=== PATIENT | female | born 1950 | race Caucasian/White ===

== ENCOUNTER 2018-05-20 14:22 | Inpatient (IN) | payer MEDICARE, MEDICAID ==
[2018-05-20] MEDS: Sodium Chloride 0.9% 1,000 ML IV SCH ×2 (15:15→20:46)
[2018-05-20] MEDS ORDERED: cefTRIAXone 2 GM Vial IVPUSH ONE (15:30)
[2018-05-20 15:41] LABS: ANION GAP 14.2 mmol/L (10-20); CHLORIDE,CL 116 mmol/L (98-107); SODIUM,NA 159 mmol/L (136-145)
--- NOTE | 2018-05-20 15:44 | CR ---
[id number] RAD/RAD Chest PA or AP 1V EXAM: RAD Chest PA or AP 1V INDICATION: FEVER, DECREASED LEVEL OF CONSCIOUSNESS, SEPSIS ALERT. COMPARISON: March 2018 DISCUSSION: Persistent streaky parenchymal opacity in the left lung base retrocardiac region with blunting of the left costophrenic sulcus, similar to March 2018. Right lung base demonstrates improved aeration compared to that examination. Stable margin of the cardiomediastinal silhouette. IMPRESSION: Left lung base streaky parenchymal opacity and blunting of the costophrenic sulcus similar to March 2018. Findings are nonspecific, however in the clinical setting of infection pneumonia is possible. Armando Ribeiro MD 05/20/18 1542 Thank you for allowing us to participate in the care of your patient.
--- NOTE | 2018-05-20 16:03 | EDM.PDOC ---
ED HPI GENERAL MEDICAL PROBLEM - General Chief Complaint: General Time Seen by Provider: 05/20/18 14:23 Source of Information: Reports: Patient History Limitations: Reports: No Limitations - History of Present Illness INITIAL COMMENTS - FREE TEXT/NARRATIVE: Pt. presents to ER with decreased LOC, increased somnolence, low grade fever, decreased appetite, and tachycardia. Staff states that she has been progressively developing these symptoms over the past 2-3 days. Pt. was hospitalized with UTI and AGUSTÍN on . She was started on IV cipro and discharged back to the [facility] on 04/11/18 on Keflex. No nausea or vomiting. Pt. apparently did well post discharge. She does have a history of frequent UTIs. Pt. has a history of vascular dementia and has not been able to give a ROS. Pt. does have a history of A-fib and was experiencing a-fib with RVR when she was admitted. She was started on dig at that time. Once she was adequately hydrated, it appears her HR did decrease. Onset Date: 05/18/18 Location: Reports: Generalized - Related Data Allergies Allergy/AdvReac Type Severity Reaction Status Date / Time No Known Allergies Allergy Verified 05/20/18 14:42 Home Meds: Home Meds Acetaminophen [Tylenol] 650 mg PO TID 04/08/18 [History] Albuterol [Proventil] 2.5 mg INH QIDRT 04/08/18 [History] Allopurinol [Zyloprim] 200 mg PO DAILY 04/08/18 [History] Bisacodyl [Dulcolax] 5 mg PO DAILY PRN 04/08/18 [History] Calcium Citrate/Vitamin D3 [Calcium Citrate - Vit D Caplet] 1 each PO DAILY [History] Cholecalciferol (Vitamin D3) [Vitamin D3] 1,000 units PO DAILY 04/08/18 [History ] Divalproex Sodium [Depakote] 250 mg PO DAILY 04/08/18 [History] Divalproex Sodium [Depakote] 500 mg PO BEDTIME 04/08/18 [History] Ferrous Gluconate 324 mg PO DAILY 04/08/18 [History] Furosemide [Lasix] 80 mg PO BID 04/08/18 [History] Gluc 2KCl/Chondr/Ralph Hy/Hy Ac [Glucosamine & Chondroitin Cap] 1 each PO BID [History] Insulin Aspart [NovoLOG] 9 unit SQ ACDINNER 04/08/18 [History] Insulin Aspart [NovoLOG] 18 unit SQ ASDIRECTED 04/08/18 [History] Insulin Glarg,Human.Rec.Analog [Lantus] 14 unit SUBCUT BEDTIME 04/08/18 [History ] Menthol [Biofreeze] 118 ml TP BID 04/08/18 [History] Metoprolol Tartrate [Lopressor] 100 mg PO BID 04/08/18 [History] Multivitamin [Multivitamins] 1 each PO DAILY 04/08/18 [History] Potassium Chloride [Klor-Con M20] 20 meq PO BID 04/08/18 [History] Rivaroxaban [Xarelto] 20 mg PO DAILY 04/08/18 [History] Sennosides/Docusate Sodium [Senna Plus Tablet] 1 tab PO DAILY 04/08/18 [History] Sertraline HCl [Zoloft] 50 mg PO DAILY 04/08/18 [History] Digoxin 125 mcg PO DAILY #30 tablet 04/12/18 [Rx] cephALEXin [Keflex] 250 mg PO BID #6 cap 04/12/18 [Rx] Past Medical History Cardiovascular History: Reports: Afib, CAD, Heart Failure, High Cholesterol, Hypertension Gastrointestinal History: Reports: GERD Genitourinary History: Reports: Urinary Incontinence Musculoskeletal History: Reports: Osteoarthritis Neurological History: Reports: TIA Psychiatric History: Reports: Anxiety, Bipolar, Dementia, Depression Endocrine/Metabolic History: Reports: Diabetes, Type II Hematologic History: Reports: Anemia, Iron Deficiency Social & Family History - Tobacco Use Smoking Status *Q: Unknown Ever Smoked ED ROS GENERAL - Review of Systems Review Of Systems: Unable To Obtain Constitutional: Reports: Fever, Chills, Fatigue, Decreased Appetite ED EXAM, GENERAL - Physical Exam Exam: See Below Exam Limited By: No Limitations General Appearance: No Apparent Distress, Lethargic, Other (alert to strong verbal stimuli) Eye Exam: Bilateral Eye: EOMI, Normal Fundi, Normal Inspection, PERRL Throat/Mouth: Normal Inspection, Normal Lips, Normal Teeth, Normal Oropharynx, No Airway Compromise Head: Atraumatic, Normocephalic Neck: Normal Inspection, Supple, Non-Tender, Full Range of Motion Respiratory/Chest: No Respiratory Distress, No Accessory Muscle Use, Chest Non- Tender, Crackles (crackles in the lung bases) Cardiovascular: Normal Peripheral Pulses, No Edema, No Gallop, No JVD, No Murmur , No Rub, Irregularly Irregular Peripheral Pulses: 3+: Radial (L), Radial (R) GI/Abdominal: Soft, Non-Tender, No Organomegaly, No Distention, No Abnormal Bruit, No Mass (Female) Exam: Deferred Rectal (Female) Exam: Deferred Back Exam: Normal Inspection Extremities: Normal Inspection, Normal Range of Motion, No Pedal Edema, Normal Capillary Refill Neurological: CN II-XII Intact, Other (was able to squeeze hands. Bath Solution Maker strength is equal bilaterally. ) Skin Exam: Warm, Dry, No Rash, Pallor Lymphatic: No Adenopathy EKG INTERPRETATION Rhythm: A-Fib [place]: Normal P-Wave: Present QRS: Normal ST-T: Normal QT: Normal Course - Vital Signs Last Recorded V/S: Last Vital Signs Temp 37.1 C 05/20/18 15:28 Pulse 122 H 05/20/18 15:28 Resp 21 H 05/20/18 15:28 BP 128/72 05/20/18 15:28 Pulse Ox 91 L 05/20/18 15:28 - Orders/Labs/Meds Orders: Active Orders 24 hr Category Date Time Status Cardiac Monitoring [RC] CONTINUOUS Care 05/20/18 14:30 Active Dietary Supplements [RC] BIDMEALS Care 05/20/18 15:30 Active Oxygen Therapy [RC] PRN Care 05/20/18 14:30 Active CULTURE BLOOD [BC] Stat Lab 05/20/18 15:00 Results CULTURE BLOOD [BC] Stat Lab 05/20/18 15:06 Results CULTURE URINE [RM] Stat Lab 05/20/18 15:48 Ordered Sodium Chloride 0.9% [Normal Saline] 1,000 ml Med 05/20/18 14:45 Active IV ASDIRECTED Sodium Chloride 0.9% [Saline Flush] Med 05/20/18 14:30 Active 10 ml FLUSH ASDIRECTED PRN Blood Culture x2 Reflex Set [OM.PC] Stat Oth 05/20/18 14:32 Ordered Peripheral IV Insertion Adult [OM.PC] Routine Oth 05/20/18 14:32 Ordered Medication Orders Sodium Chloride (Normal Saline) 1,000 mls @ 125 mls/hr IV ASDIRECTED SAMUEL Last Admin: 05/20/18 15:15 Dose: 125 mls/hr Sodium Chloride (Saline Flush) 10 ml FLUSH ASDIRECTED PRN PRN Reason: Keep Vein Open Labs: Laboratory Tests 05/20/18 05/20/18 05/20/18 Range/Units 15:00 15:00 15:00 WBC 10.1 H (4.0-10.0) x10^3/uL RBC 4.75 (4.00-5.50) x10^6/uL Hgb 15.0 D (12.0-16.0) g/dL Hct 49.0 H (33.0-47.0) % MCV 103.2 H (78.0-93.0) fL MCH 31.6 (26.0-32.0) pg MCHC 30.6 L (32.0-36.0) g/dL RDW Coeff of Neema 14.4 (10.0-15.0) % Plt Count 164 (130-400) x10^3/uL Neut % (Auto) 81.2 H (50.0-80.0) % Lymph % (Auto) 11.8 L (25.0-50.0) % Lane % (Auto) 6.5 (2.0-11.0) % Eos % (Auto) 0.0 (0.0-4.0) % Baso % (Auto) 0.5 (0.2-1.2) % PT 14.6 H (9.6-11.4) SEC INR 1.4 L (2.0-3.5) Sodium 159 H (136-145) mmol/L Potassium 4.2 (3.5-5.1) mmol/L Chloride 116 H (98-107) mmol/L Carbon Dioxide 33 H (21-32) mmol/L Anion Gap 14.2 (10-20) mmol/L BUN 48 H D (7-18) mg/dL Creatinine 1.7 H (0.55-1.02) mg/dL Est Cr Clr Drug Dosing TNP Estimated GFR (MDRD) 30 Glucose 374 H (74-106) mg/dL Lactic Acid (0.4-2.0) mmol/L Calcium 9.5 D (8.5-10.1) mg/dL Corrected Calcium 10.14 H (8.5-10.1) mg/dL Phosphorus 3.9 (2.6-4.7) mg/dL Magnesium 2.9 H (1.8-2.4) mg/dL Total Bilirubin 1.4 H (0.2-1.0) mg/dL AST 23 (15-37) U/L ALT 43 (14-59) U/L Alkaline Phosphatase 100 (46-116) U/L Troponin I 0.053 (<=0.056) ng/mL C-Reactive Protein 8.4 H (<=0.9) mg/dL NT-Pro-B Natriuret Pep 4696 H (<=125) pg/mL Total Protein 7.5 (6.4-8.2) g/dL Albumin 3.2 L (3.4-5.0) g/dL Globulin 4.3 Albumin/Globulin Ratio 0.74 TSH, Ultra Sensitive 2.720 (0.358-3.74) uIU/mL Urine Color (YELLOW) Urine Appearance (CLEAR) Urine pH (5.0-8.0) Ur Specific [place] Urine Protein (NEGATIVE) mg/dL Urine Glucose (UA) (NEGATIVE) mg/dL Urine Ketones (NEGATIVE) mg/dL Urine Occult Blood (NEGATIVE) Urine Nitrite (NEGATIVE) Urine Bilirubin (NEGATIVE) Urine Urobilinogen (0.2) EU/dL Ur Leukocyte Esterase (NEGATIVE) Urine RBC (NOT SEEN) /HPF Urine WBC (NOT SEEN) /HPF Ur Squamous Epith Cells (NEGATIVE) /HPF Urine Bacteria (NEGATIVE) /HPF Urine Mucus (NEGATIVE) /LPF Digoxin 0.95 (0.90-2.00) ng/mL 05/20/18 05/20/18 Range/Units 15:00 15:24 WBC (4.0-10.0) x10^3/uL RBC (4.00-5.50) x10^6/uL Hgb (12.0-16.0) g/dL Hct (33.0-47.0) % MCV (78.0-93.0) fL MCH (26.0-32.0) pg MCHC (32.0-36.0) g/dL RDW Coeff of Neema (10.0-15.0) % Plt Count (130-400) x10^3/uL Neut % (Auto) (50.0-80.0) % Lymph % (Auto) (25.0-50.0) % Lane % (Auto) (2.0-11.0) % Eos % (Auto) (0.0-4.0) % Baso % (Auto) (0.2-1.2) % PT (9.6-11.4) SEC INR (2.0-3.5) Sodium (136-145) mmol/L Potassium (3.5-5.1) mmol/L Chloride (98-107) mmol/L Carbon Dioxide (21-32) mmol/L Anion Gap (10-20) mmol/L BUN (7-18) mg/dL Creatinine (0.55-1.02) mg/dL Est Cr Clr Drug Dosing Estimated GFR (MDRD) Glucose (74-106) mg/dL Lactic Acid 2.5 H* (0.4-2.0) mmol/L Calcium (8.5-10.1) mg/dL Corrected Calcium (8.5-10.1) mg/dL Phosphorus (2.6-4.7) mg/dL Magnesium (1.8-2.4) mg/dL Total Bilirubin (0.2-1.0) mg/dL AST (15-37) U/L ALT (14-59) U/L Alkaline Phosphatase (46-116) U/L Troponin I (<=0.056) ng/mL C-Reactive Protein (<=0.9) mg/dL NT-Pro-B Natriuret Pep (<=125) pg/mL Total Protein (6.4-8.2) g/dL Albumin (3.4-5.0) g/dL Globulin Albumin/Globulin Ratio TSH, Ultra Sensitive (0.358-3.74) uIU/mL Urine Color Yellow (YELLOW) Urine Appearance Cloudy H (CLEAR) Urine pH 7.5 (5.0-8.0) Ur Specific [place] 1.020 Urine Protein 100 H (NEGATIVE) mg/dL Urine Glucose (UA) Negative (NEGATIVE) mg/dL Urine Ketones Negative (NEGATIVE) mg/dL Urine Occult Blood Moderate H (NEGATIVE) Urine Nitrite Negative (NEGATIVE) Urine Bilirubin Negative (NEGATIVE) Urine Urobilinogen 1.0 (0.2) EU/dL Ur Leukocyte Esterase Large H (NEGATIVE) Urine RBC Not seen (NOT SEEN) /HPF Urine WBC Packed (NOT SEEN) /HPF Ur Squamous Epith Cells Rare (NEGATIVE) /HPF Urine Bacteria Not seen (NEGATIVE) /HPF Urine Mucus Not seen (NEGATIVE) /LPF Digoxin (0.90-2.00) ng/mL Meds: Medications Generic Name Dose Route Start Last Admin Trade Name Freq PRN Reason Stop Dose Admin Sodium Chloride 1,000 mls @ 125 mls/hr 05/20/18 14:45 05/20/18 15:15 Normal Saline IV 125 mls/hr ASDIRECTED SAMUEL Administration Sodium Chloride 10 ml 05/20/18 14:30 Saline Flush FLUSH ASDIRECTED PRN Keep Vein Open Discontinued Medications Generic Name Dose Route Start Last Admin Trade Name Freq PRN Reason Stop Dose Admin Ceftriaxone Sodium 2 gm 05/20/18 15:30 05/20/18 15:40 Rocephin IVPUSH 05/20/18 15:31 2 gm STAT ONE Administration - Radiology Interpretation Free Text/Narrative:: Chest x-ray reveals some bilateral mild opacification to lung bases. No large infiltrates noted. Departure - Departure Time of Disposition: 16:12 Disposition: Admitted As Inpatient 64 Preliminary Cause of *Q: Sepsis & Multi System Organ Failure Clinical Impression: UTI (urinary tract infection) - Discharge Information - Problem List Review Problem List Initiated/Reviewed/Updated: Yes - My Orders Last 24 Hours: My Active Orders 05/20/18 14:30 Cardiac Monitoring [RC] CONTINUOUS Oxygen Therapy [RC] PRN Sodium Chloride 0.9% [Saline Flush] 10 ml FLUSH ASDIRECTED PRN 05/20/18 14:32 Blood Culture x2 Reflex Set [OM.PC] Stat Peripheral IV Insertion Adult [OM.PC] Routine 05/20/18 14:45 Sodium Chloride 0.9% [Normal Saline] 1,000 ml IV ASDIRECTED 05/20/18 15:00 CULTURE BLOOD [BC] Stat 05/20/18 15:06 CULTURE BLOOD [BC] Stat 05/20/18 15:30 Dietary Supplements [RC] BIDMEALS 05/20/18 15:48 CULTURE URINE [RM] Stat - Assessment/Plan Last 24 Hours: My Active Orders 05/20/18 14:30 Cardiac Monitoring [RC] CONTINUOUS Oxygen Therapy [RC] PRN Sodium Chloride 0.9% [Saline Flush] 10 ml FLUSH ASDIRECTED PRN 05/20/18 14:32 Blood Culture x2 Reflex Set [OM.PC] Stat Peripheral IV Insertion Adult [OM.PC] Routine 05/20/18 14:45 Sodium Chloride 0.9% [Normal Saline] 1,000 ml IV ASDIRECTED 05/20/18 15:00 CULTURE BLOOD [BC] Stat 05/20/18 15:06 CULTURE BLOOD [BC] Stat 05/20/18 15:30 Dietary Supplements [RC] BIDMEALS 05/20/18 15:48 CULTURE URINE [RM] Stat Plan: Pt. will be admitted acute. She is a code 2, no CPR, no intubation. She was started on Rocephin 2gm IV in ER. Started on NS at 125ml/hr. Urine cultures were obtained. Will reassess lung sounds and possibly repeat CXR tomorrow. Repeat lactic acid in 6 hours. Discussed findings with daughter.
[2018-05-20] MEDS ORDERED: Sodium Chloride 0.9% 1,000 ML IV ONE (16:36)
[2018-05-20] MEDS ORDERED: Bisacodyl 5 MG Tab PO PRN (18:08)
[2018-05-20] MEDS: Furosemide 80 MG Tab PO SCH (18:31)
[2018-05-20] MEDS: Insulin Glargine,Human Rec. Analog 100 Units/ML 3 ML Pen SUBCUT SCH (20:16)
[2018-05-20] MEDS: Acetaminophen 325 MG Tab PO SCH (20:44)
[2018-05-20] MEDS: Potassium Chloride 20 MEQ Tab.ER PO SCH (20:44)
[2018-05-20] MEDS: Metoprolol Tartrate 50 MG Tab PO SCH (20:45)
[2018-05-20] MEDS: Divalproex Sodium Delayed-Release 250 MG Tab.CR PO SCH (20:46)
[2018-05-21] MEDS: Sodium Chloride 0.9% 1,000 ML IV SCH (04:39)
[2018-05-21] MEDS: Divalproex Sodium Delayed-Release 250 MG Tab.CR PO SCH ×3 (07:36→21:08)
[2018-05-21] MEDS: Metoprolol Tartrate 50 MG Tab PO SCH ×3 (07:36→21:09)
[2018-05-21] MEDS ORDERED: Insulin Regular, Human 100 Units/ML 3 ML Vial SUBCUT SCH (08:00)
[2018-05-21 08:57] LABS: ANION GAP 11.6 mmol/L (10-20)
--- NOTE | 2018-05-21 09:11 | PCM.PN ---
- General Info Date of Service: 05/21/18 Admission Dx/Problem (Free Text): Urosepsis AGUSTÍN Hypernatremia Dehydration Subjective Update: Patient minimally responsive per baseline. She is able to answer with one word responses. Difficulty to obtain ROS Functional Status: Reports: Pain Controlled, Urinating - Review of Systems General: Reports: Fever Systems Review Comment:: Unable to fully obtain due to vascular dementia - Patient Data Vitals - Most Recent: Last Vital Signs Temp 37.1 C 05/21/18 06:00 Pulse 103 H 05/21/18 06:00 Resp 20 05/21/18 06:00 BP 133/78 05/21/18 06:00 Pulse Ox 94 L 05/21/18 06:00 Weight - Most Recent: 117.254 kg I&O - Last 24 Hours: Intake & Output 05/20/18 05/21/18 05/21/18 22:59 06:59 14:59 Intake Total 1343 Balance 1343 Lab Results Last 24 Hours: Laboratory Results - last 24 hr 05/20/18 05/20/18 05/20/18 Range/Units 15:00 15:00 15:00 WBC 10.1 H (4.0-10.0) x10^3/uL RBC 4.75 (4.00-5.50) x10^6/uL Hgb 15.0 D (12.0-16.0) g/dL Hct 49.0 H (33.0-47.0) % MCV 103.2 H (78.0-93.0) fL MCH 31.6 (26.0-32.0) pg MCHC 30.6 L (32.0-36.0) g/dL RDW Coeff of Neema 14.4 (10.0-15.0) % Plt Count 164 (130-400) x10^3/uL Neut % (Auto) 81.2 H (50.0-80.0) % Lymph % (Auto) 11.8 L (25.0-50.0) % [place] % (Auto) 6.5 (2.0-11.0) % Eos % (Auto) 0.0 (0.0-4.0) % Baso % (Auto) 0.5 (0.2-1.2) % PT 14.6 H (9.6-11.4) SEC INR 1.4 L (2.0-3.5) Sodium 159 H (136-145) mmol/L Potassium 4.2 (3.5-5.1) mmol/L Chloride 116 H (98-107) mmol/L Carbon Dioxide 33 H (21-32) mmol/L Anion Gap 14.2 (10-20) mmol/L BUN 48 H D (7-18) mg/dL Creatinine 1.7 H (0.55-1.02) mg/dL Est Cr Clr Drug Dosing TNP Estimated GFR (MDRD) 30 Glucose 374 H (74-106) mg/dL POC Glucose (74-106) mg/dL Lactic Acid (0.4-2.0) mmol/L Calcium 9.5 D (8.5-10.1) mg/dL Corrected Calcium 10.14 H (8.5-10.1) mg/dL Phosphorus 3.9 (2.6-4.7) mg/dL Magnesium 2.9 H (1.8-2.4) mg/dL Total Bilirubin 1.4 H (0.2-1.0) mg/dL AST 23 (15-37) U/L ALT 43 (14-59) U/L Alkaline Phosphatase 100 (46-116) U/L Troponin I 0.053 (<=0.056) ng/mL C-Reactive Protein 8.4 H (<=0.9) mg/dL NT-Pro-B Natriuret Pep 4696 H (<=125) pg/mL Total Protein 7.5 (6.4-8.2) g/dL Albumin 3.2 L (3.4-5.0) g/dL Globulin 4.3 Albumin/Globulin Ratio 0.74 TSH, Ultra Sensitive 2.720 (0.358-3.74) uIU/mL Urine Color (YELLOW) Urine Appearance (CLEAR) Urine pH (5.0-8.0) Ur Specific [place] Urine Protein (NEGATIVE) mg/dL Urine Glucose (UA) (NEGATIVE) mg/dL Urine Ketones (NEGATIVE) mg/dL Urine Occult Blood (NEGATIVE) Urine Nitrite (NEGATIVE) Urine Bilirubin (NEGATIVE) Urine Urobilinogen (0.2) EU/dL Ur Leukocyte Esterase (NEGATIVE) Urine RBC (NOT SEEN) /HPF Urine WBC (NOT SEEN) /HPF Ur Squamous Epith Cells (NEGATIVE) /HPF Urine Bacteria (NEGATIVE) /HPF Urine Mucus (NEGATIVE) /LPF Digoxin 0.95 (0.90-2.00) ng/mL 05/20/18 05/20/18 05/20/18 Range/Units 15:00 15:24 20:15 WBC (4.0-10.0) x10^3/uL RBC (4.00-5.50) x10^6/uL Hgb (12.0-16.0) g/dL Hct (33.0-47.0) % MCV (78.0-93.0) fL MCH (26.0-32.0) pg MCHC (32.0-36.0) g/dL RDW Coeff of Neema (10.0-15.0) % Plt Count (130-400) x10^3/uL Neut % (Auto) (50.0-80.0) % Lymph % (Auto) (25.0-50.0) % [place] % (Auto) (2.0-11.0) % Eos % (Auto) (0.0-4.0) % Baso % (Auto) (0.2-1.2) % PT (9.6-11.4) SEC INR (2.0-3.5) Sodium (136-145) mmol/L Potassium (3.5-5.1) mmol/L Chloride (98-107) mmol/L Carbon Dioxide (21-32) mmol/L Anion Gap (10-20) mmol/L BUN (7-18) mg/dL Creatinine (0.55-1.02) mg/dL Est Cr Clr Drug Dosing Estimated GFR (MDRD) Glucose (74-106) mg/dL POC Glucose 342 H (74-106) mg/dL Lactic Acid 2.5 H* (0.4-2.0) mmol/L Calcium (8.5-10.1) mg/dL Corrected Calcium (8.5-10.1) mg/dL Phosphorus (2.6-4.7) mg/dL Magnesium (1.8-2.4) mg/dL Total Bilirubin (0.2-1.0) mg/dL AST (15-37) U/L ALT (14-59) U/L Alkaline Phosphatase (46-116) U/L Troponin I (<=0.056) ng/mL C-Reactive Protein (<=0.9) mg/dL NT-Pro-B Natriuret Pep (<=125) pg/mL Total Protein (6.4-8.2) g/dL Albumin (3.4-5.0) g/dL Globulin Albumin/Globulin Ratio TSH, Ultra Sensitive (0.358-3.74) uIU/mL Urine Color Yellow (YELLOW) Urine Appearance Cloudy H (CLEAR) Urine pH 7.5 (5.0-8.0) Ur Specific [place] 1.020 Urine Protein 100 H (NEGATIVE) mg/dL Urine Glucose (UA) Negative (NEGATIVE) mg/dL Urine Ketones Negative (NEGATIVE) mg/dL Urine Occult Blood Moderate H (NEGATIVE) Urine Nitrite Negative (NEGATIVE) Urine Bilirubin Negative (NEGATIVE) Urine Urobilinogen 1.0 (0.2) EU/dL Ur Leukocyte Esterase Large H (NEGATIVE) Urine RBC Not seen (NOT SEEN) /HPF Urine WBC Packed (NOT SEEN) /HPF Ur Squamous Epith Cells Rare (NEGATIVE) /HPF Urine Bacteria Not seen (NEGATIVE) /HPF Urine Mucus Not seen (NEGATIVE) /LPF Digoxin (0.90-2.00) ng/mL 05/20/18 05/20/18 05/21/18 Range/Units 21:56 22:18 06:44 WBC (4.0-10.0) x10^3/uL RBC (4.00-5.50) x10^6/uL Hgb (12.0-16.0) g/dL Hct (33.0-47.0) % MCV (78.0-93.0) fL MCH (26.0-32.0) pg MCHC (32.0-36.0) g/dL RDW Coeff of Neema (10.0-15.0) % Plt Count (130-400) x10^3/uL Neut % (Auto) (50.0-80.0) % Lymph % (Auto) (25.0-50.0) % [place] % (Auto) (2.0-11.0) % Eos % (Auto) (0.0-4.0) % Baso % (Auto) (0.2-1.2) % PT (9.6-11.4) SEC INR (2.0-3.5) Sodium (136-145) mmol/L Potassium (3.5-5.1) mmol/L Chloride (98-107) mmol/L Carbon Dioxide (21-32) mmol/L Anion Gap (10-20) mmol/L BUN (7-18) mg/dL Creatinine (0.55-1.02) mg/dL Est Cr Clr Drug Dosing Estimated GFR (MDRD) Glucose (74-106) mg/dL POC Glucose 329 H 236 H (74-106) mg/dL Lactic Acid 2.1 H* (0.4-2.0) mmol/L Calcium (8.5-10.1) mg/dL Corrected Calcium (8.5-10.1) mg/dL Phosphorus (2.6-4.7) mg/dL Magnesium (1.8-2.4) mg/dL Total Bilirubin (0.2-1.0) mg/dL AST (15-37) U/L ALT (14-59) U/L Alkaline Phosphatase (46-116) U/L Troponin I (<=0.056) ng/mL C-Reactive Protein (<=0.9) mg/dL NT-Pro-B Natriuret Pep (<=125) pg/mL Total Protein (6.4-8.2) g/dL Albumin (3.4-5.0) g/dL Globulin Albumin/Globulin Ratio TSH, Ultra Sensitive (0.358-3.74) uIU/mL Urine Color (YELLOW) Urine Appearance (CLEAR) Urine pH (5.0-8.0) Ur Specific [place] Urine Protein (NEGATIVE) mg/dL Urine Glucose (UA) (NEGATIVE) mg/dL Urine Ketones (NEGATIVE) mg/dL Urine Occult Blood (NEGATIVE) Urine Nitrite (NEGATIVE) Urine Bilirubin (NEGATIVE) Urine Urobilinogen (0.2) EU/dL Ur Leukocyte Esterase (NEGATIVE) Urine RBC (NOT SEEN) /HPF Urine WBC (NOT SEEN) /HPF Ur Squamous Epith Cells (NEGATIVE) /HPF Urine Bacteria (NEGATIVE) /HPF Urine Mucus (NEGATIVE) /LPF Digoxin (0.90-2.00) ng/mL 05/21/18 05/21/18 05/21/18 Range/Units 07:59 07:59 07:59 WBC 7.4 (4.0-10.0) x10^3/uL RBC 4.42 (4.00-5.50) x10^6/uL Hgb 13.7 (12.0-16.0) g/dL Hct 46.1 (33.0-47.0) % MCV 104.3 H (78.0-93.0) fL MCH 31.0 (26.0-32.0) pg MCHC 29.7 L (32.0-36.0) g/dL RDW Coeff of Neema 14.1 (10.0-15.0) % Plt Count 161 (130-400) x10^3/uL Neut % (Auto) 78.3 (50.0-80.0) % Lymph % (Auto) 15.4 L (25.0-50.0) % [place] % (Auto) 5.7 (2.0-11.0) % Eos % (Auto) 0.3 (0.0-4.0) % Baso % (Auto) 0.3 (0.2-1.2) % PT (9.6-11.4) SEC INR (2.0-3.5) Sodium 162 H* (136-145) mmol/L Potassium 3.6 (3.5-5.1) mmol/L Chloride 123 H (98-107) mmol/L Carbon Dioxide 31 (21-32) mmol/L Anion Gap 11.6 (10-20) mmol/L BUN 43 H (7-18) mg/dL Creatinine 1.4 H (0.55-1.02) mg/dL Est Cr Clr Drug Dosing 33.65 Estimated GFR (MDRD) 37 Glucose 276 H (74-106) mg/dL POC Glucose (74-106) mg/dL Lactic Acid 1.9 (0.4-2.0) mmol/L Calcium 9.0 (8.5-10.1) mg/dL Corrected Calcium 9.96 (8.5-10.1) mg/dL Phosphorus (2.6-4.7) mg/dL Magnesium (1.8-2.4) mg/dL Total Bilirubin 1.0 (0.2-1.0) mg/dL AST 16 (15-37) U/L ALT 31 (14-59) U/L Alkaline Phosphatase 83 (46-116) U/L Troponin I (<=0.056) ng/mL C-Reactive Protein (<=0.9) mg/dL NT-Pro-B Natriuret Pep (<=125) pg/mL Total Protein 7.0 (6.4-8.2) g/dL Albumin 2.8 L (3.4-5.0) g/dL Globulin 4.2 Albumin/Globulin Ratio 0.67 TSH, Ultra Sensitive (0.358-3.74) uIU/mL Urine Color (YELLOW) Urine Appearance (CLEAR) Urine pH (5.0-8.0) Ur Specific [place] Urine Protein (NEGATIVE) mg/dL Urine Glucose (UA) (NEGATIVE) mg/dL Urine Ketones (NEGATIVE) mg/dL Urine Occult Blood (NEGATIVE) Urine Nitrite (NEGATIVE) Urine Bilirubin (NEGATIVE) Urine Urobilinogen (0.2) EU/dL Ur Leukocyte Esterase (NEGATIVE) Urine RBC (NOT SEEN) /HPF Urine WBC (NOT SEEN) /HPF Ur Squamous Epith Cells (NEGATIVE) /HPF Urine Bacteria (NEGATIVE) /HPF Urine Mucus (NEGATIVE) /LPF Digoxin (0.90-2.00) ng/mL Jose Results Last 24 Hours: Microbiology 05/20/18 14:50 Influenza Type A Antigen Screen - Final Nasal, Unspecified NEGATIVE INFLUENZA A VIRUS AG Influenza Type B Antigen Screen - Final NEGATIVE INFLUENZA B VIRUS AG 05/20/18 15:06 Anaerobic Blood Culture - Final Blood - Venous - Lab Draw 05/20/18 15:00 Anaerobic Blood Culture - Final Blood - Venous Med Orders - Current: Current Medications Acetaminophen (Tylenol) 650 mg PO TID [facility] Last Admin: 05/20/18 20:44 Dose: Not Given Allopurinol (Zyloprim) 200 mg PO DAILY [facility] Bisacodyl (Dulcolax) 5 mg PO DAILY PRN PRN Reason: Constipation Calcium Citrate (Calcium Citrate + D) 1 tab PO DAILY [facility] Ceftriaxone Sodium (Rocephin) 2 gm IVPUSH DAILY@1500 [facility] Cholecalciferol (Vitamin D3) 1,000 units PO DAILY [facility] Digoxin (Lanoxin) 125 mcg PO DAILY [facility] Divalproex Sodium (Divalproex Sodium) 250 mg PO DAILY [facility] Divalproex Sodium (Divalproex Sodium) 500 mg PO BEDTIME [facility] Last Admin: 05/21/18 07:36 Dose: Not Given Furosemide (Lasix) 80 mg PO BIDDIURETIC [facility] Last Admin: 05/20/18 18:31 Dose: Not Given Dextrose/Water (Dextrose 5% In Water) 1,000 mls @ 100 mls/hr IV ASDIRECTED [facility] Insulin Glargine (Lantus Solostar) 14 units SUBCUT BEDTIME [facility] Last Admin: 05/20/18 20:16 Dose: 14 units Insulin Human Regular (Humulin R) 0 unit SUBCUT TIDMEALS [facility]; Protocol Metoprolol Tartrate (Lopressor) 100 mg PO BID [facility] Last Admin: 05/21/18 07:36 Dose: Not Given Multivitamins/Minerals (Thera M Plus) 1 tab PO DAILY [facility] Non-Formulary Medication (Ferrous Gluconate [Ferrous Gluconate]) 324 mg PO DAILY [facility] Potassium Chloride (Klor-Con M20) 20 meq PO BID [facility] Last Admin: 05/20/18 20:44 Dose: Not Given Rivaroxaban (Xarelto) 15 mg PO DAILY [facility] Senna/Docusate Sodium (Senna Plus) 1 tab PO DAILY [facility] Sertraline HCl (Zoloft) 50 mg PO DAILY [facility] Sodium Chloride (Saline Flush) 10 ml FLUSH ASDIRECTED PRN PRN Reason: Keep Vein Open Discontinued Medications Ceftriaxone Sodium (Rocephin) 2 gm IVPUSH STAT ONE Stop: 05/20/18 15:31 Last Admin: 05/20/18 15:40 Dose: 2 gm Sodium Chloride (Normal Saline) 1,000 mls @ 125 mls/hr IV ASDIRECTED [facility] Last Admin: 05/21/18 04:39 Dose: 125 mls/hr Sodium Chloride (Normal Saline) 1,000 mls @ 175 mls/hr IV .BOLUS ONE Stop: 05/20/18 22:18 Last Admin: 05/20/18 16:46 Dose: 175 mls/hr Insulin Human Lispro (Humalog) 9 unit SUBCUT ACDINNER [facility] Insulin Human Lispro (Humalog) 18 unit SUBCUT DAILY@1100 [facility] Insulin Human Regular (Humulin R) 0 unit SUBCUT TIDMEALS [facility]; Protocol - Exam Quality Assessment: DVT Prophylaxis. No: Skin Breakdown General: Alert, Cooperative, No Acute Distress, Other (Unable to fully assess due to chronic vascular dementia) Lungs: Clear to Auscultation, Normal Respiratory Effort (coarse throughout) Cardiovascular: Regular Rate, Irregular Rhythm GI/Abdominal Exam: Soft, Non-Tender, Abnormal Bowel Sounds (Hypoactive) Extremities: Normal Inspection Skin: Warm, Dry, Intact Neurological: No New Focal Deficit - Problem List & Annotations (1) Sepsis due to gram-negative urinary tract infection SNOMED Code(s): 009859389 Code(s): A41.50 - GRAM-NEGATIVE SEPSIS, UNSPECIFIED; N39.0 - URINARY TRACT INFECTION, SITE NOT SPECIFIED Status: Acute Priority: High Current Visit: Yes (2) Acute renal failure SNOMED Code(s): 48484950 Code(s): N17.9 - ACUTE KIDNEY FAILURE, UNSPECIFIED Status: Acute Priority : Medium Current Visit: Yes Qualifiers: Acute renal failure type: unspecified Qualified Code(s): N17.9 - Acute kidney failure, unspecified (3) Dehydration SNOMED Code(s): 45942095 Code(s): E86.0 - DEHYDRATION Status: Acute Priority: Medium Current Visit: Yes (4) Hypernatremia SNOMED Code(s): 14228587 Code(s): E87.0 - HYPEROSMOLALITY AND HYPERNATREMIA Status: Acute Priority : Medium Current Visit: Yes - Problem List Review Problem List Initiated/Reviewed/Updated: Yes - My Orders Last 24 Hours: My Active Orders 05/21/18 09:15 Dextrose 5% in Water 1,000 ml IV ASDIRECTED 05/21/18 12:00 Insulin Regular, Human [HumuLIN R] See Protocol SUBCUT TIDMEALS - Assessment Assessment:: Urosepsis AGUSTÍN Hypernatremia Dehydration - Plan Plan:: 68-year-old female [facility] resident with a past medical history of vascular dementia, hypertension, type 2 diabetes, congestive heart failure, disease is admitted to the acute care floor at [facility] for diagnosis of urosepsis, acute kidney injury, hypernatremia, and dehydration. The patient was started on IV Rocephin yesterday. The patient had normal saline infusing, which was discontinued today because of hypernatremia. Will switch IV fluids over to D5 and increase the patient's insulin requirements. Awaiting urine culture, however preliminary result shows gram-negative growth. Acute kidney injury is improving. Creatinine yesterday was 1.7, and is 1.4 today. We will continue to monitor fluid status. The patient is on several toe for chronic atrial fib. The patient is a code 3. I do anticipate this admission for another 2-3 days. Continue acute cares for now. Dr. Delores Hill will assume care of this patient tomorrow AM.
[2018-05-21] MEDS: Calcium Citrate/Vitamin D3 315 MG-250 Unit Tab PO SCH (10:01)
[2018-05-21] MEDS: Multivitamins with Iron/Calcium/Folic Acid/Minerals Tab PO SCH (10:01)
[2018-05-21] MEDS: Rivaroxaban 10 MG Tab PO SCH (10:06)
[2018-05-21] MEDS: Potassium Chloride 20 MEQ Tab.ER PO SCH ×2 (10:06→21:07)
[2018-05-21] MEDS: Acetaminophen 325 MG Tab PO SCH ×3 (10:06→21:07)
[2018-05-21] MEDS: Allopurinol 100 MG Tab PO SCH (10:06)
[2018-05-21] MEDS: Cholecalciferol (Vitamin D3) 1,000 Unit Tab PO SCH (10:07)
[2018-05-21] MEDS: Digoxin 125 MCG Tab PO SCH (10:07)
[2018-05-21] MEDS: Sertraline 50 MG Tab PO SCH (10:07)
[2018-05-21] MEDS: Furosemide 80 MG Tab PO SCH ×2 (10:07→16:30)
[2018-05-21] MEDS ORDERED: Insulin Lispro 100 Unit/ML 3 ML KwikPen SUBCUT SCH ×2 (11:00→17:00)
[2018-05-21] MEDS: Dextrose 5% in Water 1,000 ML IV SCH ×2 (11:04→21:01)
[2018-05-21] MEDS: Insulin Regular, Human 100 Units/ML 3 ML Vial SUBCUT SCH ×2 (11:51→17:11)
[2018-05-21] MEDS: cefTRIAXone 2 GM Vial IVPUSH SCH (14:42)
[2018-05-21] MEDS: Insulin Glargine,Human Rec. Analog 100 Units/ML 3 ML Pen SUBCUT SCH (21:04)
[2018-05-22 07:24] LABS: ANION GAP 12.3 mmol/L (10-20)
[2018-05-22] MEDS: Cholecalciferol (Vitamin D3) 1,000 Unit Tab PO SCH (07:59)
[2018-05-22] MEDS: Furosemide 80 MG Tab PO SCH ×2 (07:59→15:05)
[2018-05-22] MEDS: Multivitamins with Iron/Calcium/Folic Acid/Minerals Tab PO SCH (07:59)
[2018-05-22] MEDS: Calcium Citrate/Vitamin D3 315 MG-250 Unit Tab PO SCH (07:59)
[2018-05-22] MEDS: Sertraline 50 MG Tab PO SCH (07:59)
[2018-05-22] MEDS: Metoprolol Tartrate 50 MG Tab PO SCH ×2 (07:59→21:30)
[2018-05-22] MEDS: Acetaminophen 325 MG Tab PO SCH ×3 (07:59→21:34)
[2018-05-22] MEDS: Rivaroxaban 10 MG Tab PO SCH (07:59)
[2018-05-22] MEDS: Allopurinol 100 MG Tab PO SCH (07:59)
[2018-05-22] MEDS: Potassium Chloride 20 MEQ Tab.ER PO SCH ×2 (07:59→21:34)
[2018-05-22] MEDS: Insulin Regular, Human 100 Units/ML 3 ML Vial SUBCUT SCH ×3 (08:00→17:45)
[2018-05-22] MEDS: Digoxin 125 MCG Tab PO SCH (08:00)
[2018-05-22] MEDS: Divalproex Sodium Delayed-Release 250 MG Tab.CR PO SCH ×2 (08:00→21:33)
--- NOTE | 2018-05-22 08:08 | PCM.PN ---
- General Info Date of Service: 05/22/18 Subjective Update: 68 yo female hospital day #3 for UTI and hypernatremia. Patient is essentially nonverbal and does not answer questions. Had an uneventful night. - Review of Systems Systems Review Comment:: Unable to assess due to patient's nonverbal status. - Patient Data Vitals - Most Recent: Last Vital Signs Temp 37.2 C 05/22/18 05:27 Pulse 90 05/22/18 08:00 Resp 20 05/22/18 05:27 BP 130/89 05/22/18 07:59 Pulse Ox 95 05/22/18 05:27 Weight - Most Recent: 115.938 kg I&O - Last 24 Hours: Intake & Output 05/21/18 05/22/18 05/22/18 22:59 06:59 14:59 Intake Total 900 1376 Balance 900 1376 Lab Results Last 24 Hours: Laboratory Results - last 24 hr 05/21/18 05/21/18 05/21/18 Range/Units 07:59 07:59 07:59 WBC 7.4 (4.0-10.0) x10^3/uL RBC 4.42 (4.00-5.50) x10^6/uL Hgb 13.7 (12.0-16.0) g/dL Hct 46.1 (33.0-47.0) % MCV 104.3 H (78.0-93.0) fL MCH 31.0 (26.0-32.0) pg MCHC 29.7 L (32.0-36.0) g/dL RDW Coeff of Neema 14.1 (10.0-15.0) % Plt Count 161 (130-400) x10^3/uL Neut % (Auto) 78.3 (50.0-80.0) % Lymph % (Auto) 15.4 L (25.0-50.0) % Will % (Auto) 5.7 (2.0-11.0) % Eos % (Auto) 0.3 (0.0-4.0) % Baso % (Auto) 0.3 (0.2-1.2) % Sodium 162 H* (136-145) mmol/L Potassium 3.6 (3.5-5.1) mmol/L Chloride 123 H (98-107) mmol/L Carbon Dioxide 31 (21-32) mmol/L Anion Gap 11.6 (10-20) mmol/L BUN 43 H (7-18) mg/dL Creatinine 1.4 H (0.55-1.02) mg/dL Est Cr Clr Drug Dosing 33.65 mL/min Estimated GFR (MDRD) 37 Glucose 276 H (74-106) mg/dL POC Glucose (74-106) mg/dL Lactic Acid 1.9 (0.4-2.0) mmol/L Calcium 9.0 (8.5-10.1) mg/dL Corrected Calcium 9.96 (8.5-10.1) mg/dL Total Bilirubin 1.0 (0.2-1.0) mg/dL AST 16 (15-37) U/L ALT 31 (14-59) U/L Alkaline Phosphatase 83 (46-116) U/L Total Protein 7.0 (6.4-8.2) g/dL Albumin 2.8 L (3.4-5.0) g/dL Globulin 4.2 Albumin/Globulin Ratio 0.67 05/22/18 05/22/18 05/22/18 Range/Units 06:20 06:38 06:38 WBC 8.6 (4.0-10.0) x10^3/uL RBC 4.56 (4.00-5.50) x10^6/uL Hgb 14.3 (12.0-16.0) g/dL Hct 46.9 (33.0-47.0) % MCV 102.9 H (78.0-93.0) fL MCH 31.4 (26.0-32.0) pg MCHC 30.5 L (32.0-36.0) g/dL RDW Coeff of Neema 13.8 (10.0-15.0) % Plt Count 128 L (130-400) x10^3/uL Neut % (Auto) 80.6 H (50.0-80.0) % Lymph % (Auto) 13.1 L (25.0-50.0) % Will % (Auto) 5.7 (2.0-11.0) % Eos % (Auto) 0.2 (0.0-4.0) % Baso % (Auto) 0.4 (0.2-1.2) % Sodium 155 H (136-145) mmol/L Potassium 3.3 L (3.5-5.1) mmol/L Chloride 116 H (98-107) mmol/L Carbon Dioxide 30 (21-32) mmol/L Anion Gap 12.3 (10-20) mmol/L BUN 35 H (7-18) mg/dL Creatinine 1.3 H (0.55-1.02) mg/dL Est Cr Clr Drug Dosing 36.23 mL/min Estimated GFR (MDRD) 40 Glucose 411 H* (74-106) mg/dL POC Glucose 366 H (74-106) mg/dL Lactic Acid (0.4-2.0) mmol/L Calcium 8.7 (8.5-10.1) mg/dL Corrected Calcium (8.5-10.1) mg/dL Total Bilirubin (0.2-1.0) mg/dL AST (15-37) U/L ALT (14-59) U/L Alkaline Phosphatase (46-116) U/L Total Protein (6.4-8.2) g/dL Albumin (3.4-5.0) g/dL Globulin Albumin/Globulin Ratio Jose Results Last 24 Hours: Microbiology 05/20/18 15:24 Urine Culture - Final Urine, Catheterized Klebsiella Pneumoniae Proteus Mirabilis 05/20/18 15:06 Aerobic Blood Culture - Preliminary Blood - Venous - Lab Draw NO GROWTH AFTER 1 DAY Anaerobic Blood Culture - Final 05/20/18 15:00 Aerobic Blood Culture - Preliminary Blood - Venous NO GROWTH AFTER 1 DAY Anaerobic Blood Culture - Final 05/20/18 16:08 MRSA Surveillance Culture - Final Nares, Unspecified NO MRSA ISOLATED Med Orders - Current: Current Medications Acetaminophen (Tylenol) 650 mg PO TID [facility] Last Admin: 05/22/18 07:59 Dose: 650 mg Allopurinol (Zyloprim) 200 mg PO DAILY [facility] Last Admin: 05/22/18 07:59 Dose: 200 mg Bisacodyl (Dulcolax) 5 mg PO DAILY PRN PRN Reason: Constipation Calcium Citrate (Calcium Citrate + D) 1 tab PO DAILY [facility] Last Admin: 05/22/18 07:59 Dose: 1 tab Ceftriaxone Sodium (Rocephin) 2 gm IVPUSH DAILY@1500 [facility] Last Admin: 05/21/18 14:42 Dose: 2 gm Cholecalciferol (Vitamin D3) 1,000 units PO DAILY [facility] Last Admin: 05/22/18 07:59 Dose: 1,000 units Digoxin (Lanoxin) 125 mcg PO DAILY [facility] Last Admin: 05/22/18 08:00 Dose: 125 mcg Divalproex Sodium (Divalproex Sodium) 250 mg PO DAILY [facility] Last Admin: 05/22/18 08:00 Dose: 250 mg Divalproex Sodium (Divalproex Sodium) 500 mg PO BEDTIME [facility] Last Admin: 05/21/18 21:08 Dose: 500 mg Furosemide (Lasix) 80 mg PO BIDDIURETIC [facility] Last Admin: 05/22/18 07:59 Dose: 80 mg Dextrose/Water (Dextrose 5% In Water) 1,000 mls @ 100 mls/hr IV ASDIRECTED [facility] Last Admin: 05/21/18 21:01 Dose: 100 mls/hr Insulin Glargine (Lantus Solostar) 14 units SUBCUT BEDTIME [facility] Last Admin: 05/21/18 21:04 Dose: 14 units Insulin Human Regular (Humulin R) 0 unit SUBCUT TIDMEALS [facility]; Protocol Last Admin: 05/22/18 08:00 Dose: 18 units Metoprolol Tartrate (Lopressor) 100 mg PO BID [facility] Last Admin: 05/22/18 07:59 Dose: 100 mg Multivitamins/Minerals (Thera M Plus) 1 tab PO DAILY [facility] Last Admin: 05/22/18 07:59 Dose: 1 tab Non-Formulary Medication (Ferrous Gluconate [Ferrous Gluconate]) 324 mg PO DAILY [facility] Potassium Chloride (Klor-Con M20) 20 meq PO BID [facility] Last Admin: 05/22/18 07:59 Dose: 20 meq Rivaroxaban (Xarelto) 15 mg PO DAILY [facility] Last Admin: 05/22/18 07:59 Dose: 15 mg Senna/Docusate Sodium (Senna Plus) 1 tab PO DAILY [facility] Last Admin: 05/22/18 08:00 Dose: 1 tab Sertraline HCl (Zoloft) 50 mg PO DAILY [facility] Last Admin: 05/22/18 07:59 Dose: 50 mg Sodium Chloride (Saline Flush) 10 ml FLUSH ASDIRECTED PRN PRN Reason: Keep Vein Open Discontinued Medications Ceftriaxone Sodium (Rocephin) 2 gm IVPUSH STAT ONE Stop: 05/20/18 15:31 Last Admin: 05/20/18 15:40 Dose: 2 gm Sodium Chloride (Normal Saline) 1,000 mls @ 125 mls/hr IV ASDIRECTED [facility] Last Admin: 05/21/18 04:39 Dose: 125 mls/hr Sodium Chloride (Normal Saline) 1,000 mls @ 175 mls/hr IV .BOLUS ONE Stop: 05/20/18 22:18 Last Admin: 05/20/18 16:46 Dose: 175 mls/hr Insulin Human Lispro (Humalog) 9 unit SUBCUT ACDINNER [facility] Insulin Human Lispro (Humalog) 18 unit SUBCUT DAILY@1100 [facility] Insulin Human Regular (Humulin R) 0 unit SUBCUT TIDMEALS [facility]; Protocol Last Admin: 05/21/18 08:00 Dose: Not Given - Exam General: No Acute Distress, Other (sleepy but does alert to questions) HEENT: Mucous Membr. Moist/[place] Neck: Supple, Trachea Midline, No Thyromegaly. No: Lymphadenopathy Lungs: Clear to Auscultation, Normal Respiratory Effort Cardiovascular: Regular Rate, No Murmurs, Irregular Rhythm GI/Abdominal Exam: Normal Bowel Sounds, Soft, Non-Tender, No Organomegaly, No Distention, No Mass Extremities: Non-Tender, No Pedal Edema, Normal Capillary Refill Peripheral Pulses: 2+: Radial (L), Radial (R) Skin: Warm, Dry, Intact - Problem List & Annotations (1) UTI (urinary tract infection) SNOMED Code(s): 68204539 Code(s): N39.0 - URINARY TRACT INFECTION, SITE NOT SPECIFIED Status: Acute Current Visit: Yes Qualifiers: Urinary tract infection type: acute cystitis Hematuria presence: without hematuria Qualified Code(s): N30.00 - Acute cystitis without hematuria (2) Acute renal failure SNOMED Code(s): 41412530 Code(s): N17.9 - ACUTE KIDNEY FAILURE, UNSPECIFIED Status: Acute Priority : Medium Current Visit: Yes Qualifiers: Acute renal failure type: unspecified Qualified Code(s): N17.9 - Acute kidney failure, unspecified (3) Chronic kidney disease SNOMED Code(s): 982243966 Code(s): N18.9 - CHRONIC KIDNEY DISEASE, UNSPECIFIED Status: Chronic Current Visit: Yes Qualifiers: Chronic kidney disease stage: stage 3 (moderate) Qualified Code(s): N18.3 - Chronic kidney disease, stage 3 (moderate) (4) Dehydration SNOMED Code(s): 17391260 Code(s): E86.0 - DEHYDRATION Status: Acute Priority: Medium Current Visit: Yes (5) Hypernatremia SNOMED Code(s): 22570145 Code(s): E87.0 - HYPEROSMOLALITY AND HYPERNATREMIA Status: Acute Priority : Medium Current Visit: Yes (6) CHF (congestive heart failure) SNOMED Code(s): 48261102 Code(s): I50.9 - HEART FAILURE, UNSPECIFIED Status: Chronic Current Visit : No Qualifiers: Heart failure type: diastolic Heart failure chronicity: chronic Qualified Code(s): I50.32 - Chronic diastolic (congestive) heart failure (7) Diabetes SNOMED Code(s): 37737399 Code(s): E11.9 - TYPE 2 DIABETES MELLITUS WITHOUT COMPLICATIONS Status: Chronic Current Visit: No Qualifiers: Diabetes mellitus type: type 2 Diabetes mellitus intermediate frame tender insulin use: with [facility] use Diabetes mellitus complication status: without complication Qualified Code(s): E11.9 - Type 2 diabetes mellitus without complications; Z79.4 - residential (current) use of insulin (8) Dementia SNOMED Code(s): 35284156 Code(s): F03.90 - UNSPECIFIED DEMENTIA WITHOUT BEHAVIORAL DISTURBANCE Status: Chronic Current Visit: No Qualifiers: Dementia type: unspecified type Dementia behavioral disturbance: without behavioral disturbance Qualified Code(s): F03.90 - Unspecified dementia without behavioral disturbance (9) Atrial fibrillation SNOMED Code(s): 94939011 Code(s): I48.91 - UNSPECIFIED ATRIAL FIBRILLATION Status: Chronic Current Visit: No Qualifiers: Atrial fibrillation type: persistent Qualified Code(s): I48.1 - Persistent atrial fibrillation (10) Bipolar 1 disorder SNOMED Code(s): 366974603 Code(s): F31.9 - BIPOLAR DISORDER, UNSPECIFIED Status: Chronic Current Visit: No (11) Hypertension SNOMED Code(s): 83694445 Code(s): I10 - ESSENTIAL (PRIMARY) HYPERTENSION Status: Chronic Current Visit: No Qualifiers: Hypertension type: essential hypertension Qualified Code(s): I10 - Essential (primary) hypertension (12) Morbid obesity SNOMED Code(s): 360506228 Code(s): E66.01 - MORBID (SEVERE) OBESITY DUE TO EXCESS CALORIES Status: Chronic Current Visit: No (13) Sleep apnea SNOMED Code(s): 43623902 Code(s): G47.30 - SLEEP APNEA, UNSPECIFIED Status: Chronic Current Visit : No Qualifiers: Sleep apnea type: unspecified type Qualified Code(s): G47.30 - Sleep apnea , unspecified - Problem List Review Problem List Initiated/Reviewed/Updated: Yes - Assessment Assessment:: 68 yo female admitted with decreased level of alertness related to UTI and hypernatremia. Labs are improving. Mental status is near her baseline. - Plan Plan:: #1 UTI - Patient's u/a significantly positive and culture also now positive. - Continue ceftriaxone until susceptibilities available. Patient may not require PO antibiotics upon dismissal depending on how many more days she is here. - Patient did not meet sepsis criteria on admission or since as far as I can see from chart review. Lactate was high but likely from dehydration. Blood cultures negative thus far. #2 Acute Renal Failure #3 Chronic Kidney Disease #4 Dehydration #5 Hypernatremia - Labs continue to improve. - Will transition from D5 to 1/2 NS due to significant glucose elevations and improvement in sodium today. Rate will be at 100 cc/hr. - Recheck labs this pm to see if we can at least decrease the rate and/or possibly transition to PO fluids depending on her level of alertness. #6 CHF - No evidence of acute exacerbation. - Home diuretics have been continued. - Watching closely for any signs of fluid overload but she seems to be tolerating the fluid ok thus far despite her elevated BNP. #7 Diabetes - Glucoses significantly elevated after transition to D5 yesterday. - Given improvement in sodium, will change from D5 to 1/2 NS. - No changes in her insulin. - Will see how the glucoses improve with stopping the D5. #8 Dementia - Patient's baseline is intermittently verbal. - She is slightly more drowsy than usual but otherwise acting like herself. - Will continue to monitor. #9 Atrial fibrillation #10 Bipolar disorder #11 Hypertension #12 Obesity #13 [place] - Home medications continued. Patient is gradually improving but is not prepared for dismissal yet. She will remain on acute today - anticipate dismissal back to the care center in the next 1-2 days. No changes to the plan today apart from transition from D5 to 1/ 2 NS. Code status is DNR/DNI. Patient is on xarelto and does not require anything else for VTE prophylaxis.
[2018-05-22] MEDS: Ferrous Sulfate 325 MG Tab PO SCH (08:30)
[2018-05-22] MEDS: Sodium Chloride 0.9% 10 ML Syringe FLUSH PRN ×2 (09:01→15:05)
[2018-05-22] MEDS: Sodium Chloride 0.45% 1,000 ML IV SCH ×2 (09:01→19:04)
[2018-05-22] MEDS: cefTRIAXone 2 GM Vial IVPUSH SCH (15:05)
[2018-05-22 15:34] LABS: ANION GAP 11.4 mmol/L (10-20)
[2018-05-22] MEDS: Insulin Glargine,Human Rec. Analog 100 Units/ML 3 ML Pen SUBCUT SCH (21:35)
[2018-05-23] MEDS: Sodium Chloride 0.45% 1,000 ML IV SCH (04:54)
[2018-05-23 07:09] LABS: ANION GAP 12.4 mmol/L (10-20)
[2018-05-23] MEDS: Calcium Citrate/Vitamin D3 315 MG-250 Unit Tab PO SCH (07:34)
[2018-05-23] MEDS: Multivitamins with Iron/Calcium/Folic Acid/Minerals Tab PO SCH (07:34)
[2018-05-23] MEDS: Ferrous Sulfate 325 MG Tab PO SCH (07:34)
[2018-05-23] MEDS: Rivaroxaban 10 MG Tab PO SCH (07:35)
[2018-05-23] MEDS: Divalproex Sodium Delayed-Release 250 MG Tab.CR PO SCH ×2 (07:35→22:56)
[2018-05-23] MEDS: Metoprolol Tartrate 50 MG Tab PO SCH ×2 (07:35→22:55)
[2018-05-23] MEDS: Acetaminophen 325 MG Tab PO SCH ×3 (07:35→22:55)
[2018-05-23] MEDS: Sertraline 50 MG Tab PO SCH (07:35)
[2018-05-23] MEDS: Furosemide 80 MG Tab PO SCH ×2 (07:35→16:24)
[2018-05-23] MEDS: Potassium Chloride 20 MEQ Tab.ER PO SCH ×2 (07:35→22:56)
[2018-05-23] MEDS: Cholecalciferol (Vitamin D3) 1,000 Unit Tab PO SCH (07:35)
[2018-05-23] MEDS: Allopurinol 100 MG Tab PO SCH (07:35)
[2018-05-23] MEDS: Digoxin 125 MCG Tab PO SCH (07:35)
[2018-05-23] MEDS: Insulin Regular, Human 100 Units/ML 3 ML Vial SUBCUT SCH ×3 (07:39→18:09)
--- NOTE | 2018-05-23 08:32 | PCM.PN ---
- General Info Date of Service: 05/23/18 Subjective Update: 68 yo female hospital day #4 for altered mental status secondary to UTI and hypernatremia. No events overnight. Patient is more alert today but still does not answer questions. - Review of Systems Systems Review Comment:: Unable to assess due to patient's nonverbal status. - Patient Data Vitals - Most Recent: Last Vital Signs Temp 36.8 C 05/23/18 06:00 Pulse 90 05/23/18 07:35 Resp 20 05/23/18 06:00 BP 141/82 H 05/23/18 07:35 Pulse Ox 95 05/23/18 06:00 Weight - Most Recent: 110.495 kg I&O - Last 24 Hours: Intake & Output 05/22/18 05/23/18 05/23/18 22:59 06:59 14:59 Intake Total 950 1080 120 Balance 950 1080 120 Lab Results Last 24 Hours: Laboratory Results - last 24 hr 05/21/18 05/21/18 05/21/18 Range/Units 11:38 16:43 20:56 WBC (4.0-10.0) x10^3/uL RBC (4.00-5.50) x10^6/uL Hgb (12.0-16.0) g/dL Hct (33.0-47.0) % MCV (78.0-93.0) fL MCH (26.0-32.0) pg MCHC (32.0-36.0) g/dL RDW Coeff of [place] (10.0-15.0) % Plt Count (130-400) x10^3/uL Neut % (Auto) (50.0-80.0) % Lymph % (Auto) (25.0-50.0) % Brown % (Auto) (2.0-11.0) % Eos % (Auto) (0.0-4.0) % Baso % (Auto) (0.2-1.2) % Sodium (136-145) mmol/L Potassium (3.5-5.1) mmol/L Chloride (98-107) mmol/L Carbon Dioxide (21-32) mmol/L Anion Gap (10-20) mmol/L BUN (7-18) mg/dL Creatinine (0.55-1.02) mg/dL Est Cr Clr Drug Dosing mL/min Estimated GFR (MDRD) Glucose (74-106) mg/dL POC Glucose 347 H 228 H 259 H (74-106) mg/dL Calcium (8.5-10.1) mg/dL 05/22/18 05/22/18 05/22/18 Range/Units 11:54 15:03 17:03 WBC (4.0-10.0) x10^3/uL RBC (4.00-5.50) x10^6/uL Hgb (12.0-16.0) g/dL Hct (33.0-47.0) % MCV (78.0-93.0) fL MCH (26.0-32.0) pg MCHC (32.0-36.0) g/dL RDW Coeff of Neema (10.0-15.0) % Plt Count (130-400) x10^3/uL Neut % (Auto) (50.0-80.0) % Lymph % (Auto) (25.0-50.0) % Brown % (Auto) (2.0-11.0) % Eos % (Auto) (0.0-4.0) % Baso % (Auto) (0.2-1.2) % Sodium 157 H (136-145) mmol/L Potassium 3.4 L (3.5-5.1) mmol/L Chloride 118 H (98-107) mmol/L Carbon Dioxide 31 (21-32) mmol/L Anion Gap 11.4 (10-20) mmol/L BUN 35 H (7-18) mg/dL Creatinine 1.4 H (0.55-1.02) mg/dL Est Cr Clr Drug Dosing 33.65 mL/min Estimated GFR (MDRD) 37 Glucose 241 H (74-106) mg/dL POC Glucose 267 H 224 H (74-106) mg/dL Calcium 8.9 (8.5-10.1) mg/dL 05/22/18 05/23/18 05/23/18 Range/Units 21:32 06:05 06:40 WBC 7.4 (4.0-10.0) x10^3/uL RBC 4.47 (4.00-5.50) x10^6/uL Hgb 14.0 (12.0-16.0) g/dL Hct 45.4 (33.0-47.0) % MCV 101.6 H (78.0-93.0) fL MCH 31.3 (26.0-32.0) pg MCHC 30.8 L (32.0-36.0) g/dL RDW Coeff of Neema 13.5 (10.0-15.0) % Plt Count 135 (130-400) x10^3/uL Neut % (Auto) 73.6 (50.0-80.0) % Lymph % (Auto) 17.7 L (25.0-50.0) % Brown % (Auto) 7.3 (2.0-11.0) % Eos % (Auto) 0.7 (0.0-4.0) % Baso % (Auto) 0.7 (0.2-1.2) % Sodium (136-145) mmol/L Potassium (3.5-5.1) mmol/L Chloride (98-107) mmol/L Carbon Dioxide (21-32) mmol/L Anion Gap (10-20) mmol/L BUN (7-18) mg/dL Creatinine (0.55-1.02) mg/dL Est Cr Clr Drug Dosing mL/min Estimated GFR (MDRD) Glucose (74-106) mg/dL POC Glucose 137 H 115 H (74-106) mg/dL Calcium (8.5-10.1) mg/dL 05/23/18 Range/Units 06:40 WBC (4.0-10.0) x10^3/uL RBC (4.00-5.50) x10^6/uL Hgb (12.0-16.0) g/dL Hct (33.0-47.0) % MCV (78.0-93.0) fL MCH (26.0-32.0) pg MCHC (32.0-36.0) g/dL RDW Coeff of Neema (10.0-15.0) % Plt Count (130-400) x10^3/uL Neut % (Auto) (50.0-80.0) % Lymph % (Auto) (25.0-50.0) % Brown % (Auto) (2.0-11.0) % Eos % (Auto) (0.0-4.0) % Baso % (Auto) (0.2-1.2) % Sodium 157 H (136-145) mmol/L Potassium 3.4 L (3.5-5.1) mmol/L Chloride 118 H (98-107) mmol/L Carbon Dioxide 30 (21-32) mmol/L Anion Gap 12.4 (10-20) mmol/L BUN 29 H (7-18) mg/dL Creatinine 1.2 H (0.55-1.02) mg/dL Est Cr Clr Drug Dosing 39.25 mL/min Estimated GFR (MDRD) 44 Glucose 119 H (74-106) mg/dL POC Glucose (74-106) mg/dL Calcium 8.5 (8.5-10.1) mg/dL Jose Results Last 24 Hours: Microbiology 05/20/18 15:06 Aerobic Blood Culture - Preliminary Blood - Venous - Lab Draw NO GROWTH AFTER 2 DAYS Anaerobic Blood Culture - Final 05/20/18 15:00 Aerobic Blood Culture - Preliminary Blood - Venous NO GROWTH AFTER 2 DAYS Anaerobic Blood Culture - Final 05/20/18 15:24 Urine Culture - Final Urine, Catheterized Klebsiella Pneumoniae Proteus Mirabilis Med Orders - Current: Current Medications Acetaminophen (Tylenol) 650 mg PO TID [facility] Last Admin: 05/23/18 07:35 Dose: 650 mg Allopurinol (Zyloprim) 200 mg PO DAILY [facility] Last Admin: 05/23/18 07:35 Dose: 200 mg Bisacodyl (Dulcolax) 5 mg PO DAILY PRN PRN Reason: Constipation Calcium Citrate (Calcium Citrate + D) 1 tab PO DAILY [facility] Last Admin: 05/23/18 07:34 Dose: 1 tab Ceftriaxone Sodium (Rocephin) 2 gm IVPUSH DAILY@1500 [facility] Last Admin: 05/22/18 15:05 Dose: 2 gm Cholecalciferol (Vitamin D3) 1,000 units PO DAILY [facility] Last Admin: 05/23/18 07:35 Dose: 1,000 units Digoxin (Lanoxin) 125 mcg PO DAILY [facility] Last Admin: 05/23/18 07:35 Dose: 125 mcg Divalproex Sodium (Divalproex Sodium) 250 mg PO DAILY [facility] Last Admin: 05/23/18 07:35 Dose: 250 mg Divalproex Sodium (Divalproex Sodium) 500 mg PO BEDTIME [facility] Last Admin: 05/22/18 21:33 Dose: 500 mg Ferrous Sulfate (Ferrous Sulfate) 325 mg PO DAILY [facility] Last Admin: 05/23/18 07:34 Dose: 325 mg Furosemide (Lasix) 80 mg PO BIDDIURETIC [facility] Last Admin: 05/23/18 07:35 Dose: 80 mg Sodium Chloride (Sodium Chloride 0.45%) 1,000 mls @ 200 mls/hr IV ASDIRECTED [facility] Last Admin: 05/23/18 04:54 Dose: 100 mls/hr Insulin Glargine (Lantus Solostar) 14 units SUBCUT BEDTIME [facility] Last Admin: 05/22/18 21:35 Dose: 14 units Insulin Human Regular (Humulin R) 0 unit SUBCUT TIDMEALS [facility]; Protocol Last Admin: 05/23/18 07:39 Dose: Not Given Metoprolol Tartrate (Lopressor) 100 mg PO BID [facility] Last Admin: 05/23/18 07:35 Dose: 100 mg Multivitamins/Minerals (Thera M Plus) 1 tab PO DAILY [facility] Last Admin: 05/23/18 07:34 Dose: 1 tab Potassium Chloride (Klor-Con M20) 20 meq PO BID [facility] Last Admin: 05/23/18 07:35 Dose: 20 meq Rivaroxaban (Xarelto) 15 mg PO DAILY [facility] Last Admin: 05/23/18 07:35 Dose: 15 mg Senna/Docusate Sodium (Senna Plus) 1 tab PO DAILY [facility] Last Admin: 05/23/18 07:35 Dose: 1 tab Sertraline HCl (Zoloft) 50 mg PO DAILY [facility] Last Admin: 05/23/18 07:35 Dose: 50 mg Sodium Chloride (Saline Flush) 10 ml FLUSH ASDIRECTED PRN PRN Reason: Keep Vein Open Last Admin: 05/22/18 15:05 Dose: 10 ml Discontinued Medications Ceftriaxone Sodium (Rocephin) 2 gm IVPUSH STAT ONE Stop: 05/20/18 15:31 Last Admin: 05/20/18 15:40 Dose: 2 gm Sodium Chloride (Normal Saline) 1,000 mls @ 125 mls/hr IV ASDIRECTED [facility] Last Admin: 05/21/18 04:39 Dose: 125 mls/hr Sodium Chloride (Normal Saline) 1,000 mls @ 175 mls/hr IV .BOLUS ONE Stop: 05/20/18 22:18 Last Admin: 05/20/18 16:46 Dose: 175 mls/hr Dextrose/Water (Dextrose 5% In Water) 1,000 mls @ 100 mls/hr IV ASDIRECTED [facility] Last Admin: 05/21/18 21:01 Dose: 100 mls/hr Insulin Human Lispro (Humalog) 9 unit SUBCUT ACDINNER [facility] Insulin Human Lispro (Humalog) 18 unit SUBCUT DAILY@1100 [facility] Insulin Human Regular (Humulin R) 0 unit SUBCUT TIDMEALS [facility]; Protocol Last Admin: 05/21/18 08:00 Dose: Not Given - Exam General: Alert, Cooperative, No Acute Distress HEENT: Mucous Membr. Moist/[place] Neck: Supple, Trachea Midline, No Thyromegaly. No: Lymphadenopathy Lungs: Clear to Auscultation, Normal Respiratory Effort Cardiovascular: Regular Rate, No Murmurs, Irregular Rhythm GI/Abdominal Exam: Normal Bowel Sounds, Soft, Non-Tender, No Organomegaly, No Distention, No Mass Extremities: Non-Tender, No Pedal Edema, Normal Capillary Refill Peripheral Pulses: 2+: Radial (L), Radial (R) Skin: Warm, Dry, Intact Neurological: No New Focal Deficit - Problem List & Annotations (1) UTI (urinary tract infection) SNOMED Code(s): 94727361 Code(s): N39.0 - URINARY TRACT INFECTION, SITE NOT SPECIFIED Status: Acute Current Visit: Yes Qualifiers: Urinary tract infection type: acute cystitis Hematuria presence: without hematuria Qualified Code(s): N30.00 - Acute cystitis without hematuria (2) Acute renal failure SNOMED Code(s): 32027735 Code(s): N17.9 - ACUTE KIDNEY FAILURE, UNSPECIFIED Status: Acute Priority : Medium Current Visit: Yes Qualifiers: Acute renal failure type: unspecified Qualified Code(s): N17.9 - Acute kidney failure, unspecified (3) Chronic kidney disease SNOMED Code(s): 200188418 Code(s): N18.9 - CHRONIC KIDNEY DISEASE, UNSPECIFIED Status: Chronic Current Visit: Yes Qualifiers: Chronic kidney disease stage: stage 3 (moderate) Qualified Code(s): N18.3 - Chronic kidney disease, stage 3 (moderate) (4) Dehydration SNOMED Code(s): 99240628 Code(s): E86.0 - DEHYDRATION Status: Acute Priority: Medium Current Visit: Yes (5) Hypernatremia SNOMED Code(s): 63235694 Code(s): E87.0 - HYPEROSMOLALITY AND HYPERNATREMIA Status: Acute Priority : Medium Current Visit: Yes (6) CHF (congestive heart failure) SNOMED Code(s): 57460393 Code(s): I50.9 - HEART FAILURE, UNSPECIFIED Status: Chronic Current Visit : No Qualifiers: Heart failure type: diastolic Heart failure chronicity: chronic Qualified Code(s): I50.32 - Chronic diastolic (congestive) heart failure (7) Diabetes SNOMED Code(s): 67759646 Code(s): E11.9 - TYPE 2 DIABETES MELLITUS WITHOUT COMPLICATIONS Status: Chronic Current Visit: No Qualifiers: Diabetes mellitus type: type 2 Diabetes mellitus skilled nursing insulin use: with skilled nursing use Diabetes mellitus complication status: without complication Qualified Code(s): E11.9 - Type 2 diabetes mellitus without complications; Z79.4 - petroleum terminal plant operator (current) use of insulin (8) Dementia SNOMED Code(s): 52291384 Code(s): F03.90 - UNSPECIFIED DEMENTIA WITHOUT BEHAVIORAL DISTURBANCE Status: Chronic Current Visit: No Qualifiers: Dementia type: unspecified type Dementia behavioral disturbance: without behavioral disturbance Qualified Code(s): F03.90 - Unspecified dementia without behavioral disturbance (9) Atrial fibrillation SNOMED Code(s): 57789798 Code(s): I48.91 - UNSPECIFIED ATRIAL FIBRILLATION Status: Chronic Current Visit: No Qualifiers: Atrial fibrillation type: persistent Qualified Code(s): I48.1 - Persistent atrial fibrillation (10) Bipolar 1 disorder SNOMED Code(s): 673535321 Code(s): F31.9 - BIPOLAR DISORDER, UNSPECIFIED Status: Chronic Current Visit: No (11) Hypertension SNOMED Code(s): 79144442 Code(s): I10 - ESSENTIAL (PRIMARY) HYPERTENSION Status: Chronic Current Visit: No Qualifiers: Hypertension type: essential hypertension Qualified Code(s): I10 - Essential (primary) hypertension (12) Morbid obesity SNOMED Code(s): 416295385 Code(s): E66.01 - MORBID (SEVERE) OBESITY DUE TO EXCESS CALORIES Status: Chronic Current Visit: No (13) Sleep apnea SNOMED Code(s): 31046158 Code(s): G47.30 - SLEEP APNEA, UNSPECIFIED Status: Chronic Current Visit : No Qualifiers: Sleep apnea type: unspecified type Qualified Code(s): G47.30 - Sleep apnea , unspecified - Problem List Review Problem List Initiated/Reviewed/Updated: Yes - My Orders Last 24 Hours: My Active Orders 05/22/18 08:15 Sodium Chloride 0.45% 1,000 ml IV ASDIRECTED 05/23/18 13:00 BASIC METABOLIC PANEL,BMP [CHEM] Routine - Assessment Assessment:: 68 yo female admitted with decreased level of alertness related to UTI and hypernatremia. 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 Mental status is at her baseline. - Plan Plan:: #1 UTI - Final culture results reviewed. - Will complete 5 days of IV ceftriaxone and then hold off on further antibiotics. - Patient did not meet sepsis criteria on admission or since as far as I can see from chart review. Lactate was high but likely from dehydration. Blood cultures negative. #2 Acute Renal Failure #3 Chronic Kidney Disease #4 Dehydration #5 Hypernatremia - Labs stable/improved. - Sodium has been holding steady despite fluids. Will increase the rate on the 1 /2 NS to 200 cc/hr and recheck again this afternoon. Adjustments to fluids will be made based on those results. - Normal sodium for her is around 146. If we can get her closer to 150, that would be appropriate for discharge since she is not symptomatic from this. #6 CHF - No evidence of acute exacerbation. - Home diuretics have been continued. - Watching closely for any signs of fluid overload but she seems to be tolerating the fluid ok thus far despite her elevated BNP. #7 Diabetes - Glucoses better after change from D5 to 1/2 NS. - No changes in her insulin today. #8 Dementia - Patient's baseline is intermittently verbal. - She is acting like herself. - Will continue to monitor. #9 Atrial fibrillation #10 Bipolar disorder #11 Hypertension #12 Obesity #13 [place] - Home medications continued. Patient is gradually improving but is not prepared for dismissal yet. She will remain on acute today - anticipate dismissal back to the care center in the next 1-2 days. No changes to the plan today apart from IV fluids as described above. Code status is DNR/DNI. Patient is on xarelto and does not require anything else for VTE prophylaxis.
[2018-05-23 13:27] LABS: ANION GAP 11.7 mmol/L (10-20)
[2018-05-23] MEDS: cefTRIAXone 2 GM Vial IVPUSH SCH (14:27)
[2018-05-23] MEDS: Sodium Chloride 0.9% 10 ML Syringe FLUSH PRN (14:28)
[2018-05-23] MEDS: Insulin Glargine,Human Rec. Analog 100 Units/ML 3 ML Pen SUBCUT SCH (22:57)
[2018-05-24 07:23] LABS: ANION GAP 11.2 mmol/L (10-20)
--- NOTE | 2018-05-24 08:34 | PCM.DCSUM1 ---
Discharge Summary - Hospital Course Brief History: Ms. Rowe is a 68 yo female who was admitted with a UTI and hypernatremia after presenting to the ER for evaluation of altered mental status. - Discharge Data Discharge Date: 05/24/18 Discharge Disposition: DC/Tfer to SNF 03 Preliminary Cause of *Q: Sepsis & Multi System Organ Failure Condition: Good - Discharge Diagnosis/Problem(s) (1) UTI (urinary tract infection) SNOMED Code(s): 11367728 ICD Code: N39.0 - URINARY TRACT INFECTION, SITE NOT SPECIFIED Status: Acute Current Visit: Yes Qualifiers: Urinary tract infection type: acute cystitis Hematuria presence: without hematuria Qualified Code(s): N30.00 - Acute cystitis without hematuria (2) Acute renal failure SNOMED Code(s): 71659673 ICD Code: N17.9 - ACUTE KIDNEY FAILURE, UNSPECIFIED Status: Acute Priority: Medium Current Visit: Yes Qualifiers: Acute renal failure type: unspecified Qualified Code(s): N17.9 - Acute kidney failure, unspecified (3) Chronic kidney disease SNOMED Code(s): 766883618 ICD Code: N18.9 - CHRONIC KIDNEY DISEASE, UNSPECIFIED Status: Chronic Current Visit: Yes Qualifiers: Chronic kidney disease stage: stage 3 (moderate) Qualified Code(s): N18.3 - Chronic kidney disease, stage 3 (moderate) (4) Dehydration SNOMED Code(s): 94399148 ICD Code: E86.0 - DEHYDRATION Status: Acute Priority: Medium Current Visit: Yes (5) Hypernatremia SNOMED Code(s): 51081708 ICD Code: E87.0 - HYPEROSMOLALITY AND HYPERNATREMIA Status: Acute Priority: Medium Current Visit: Yes (6) CHF (congestive heart failure) SNOMED Code(s): 26459057 ICD Code: I50.9 - HEART FAILURE, UNSPECIFIED Status: Chronic Current Visit: No Qualifiers: Heart failure type: diastolic Heart failure chronicity: chronic Qualified Code(s): I50.32 - Chronic diastolic (congestive) heart failure (7) Diabetes SNOMED Code(s): 69492032 ICD Code: E11.9 - TYPE 2 DIABETES MELLITUS WITHOUT COMPLICATIONS Status: Chronic Current Visit: No Qualifiers: Diabetes mellitus type: type 2 Diabetes mellitus manager intermediate insulin use: with manager intermediate use Diabetes mellitus complication status: without complication Qualified Code(s): E11.9 - Type 2 diabetes mellitus without complications; Z79.4 - shelter (current) use of insulin (8) Dementia SNOMED Code(s): 99226600 ICD Code: F03.90 - UNSPECIFIED DEMENTIA WITHOUT BEHAVIORAL DISTURBANCE Status: Chronic Current Visit: No Qualifiers: Dementia type: unspecified type Dementia behavioral disturbance: without behavioral disturbance Qualified Code(s): F03.90 - Unspecified dementia without behavioral disturbance (9) Atrial fibrillation SNOMED Code(s): 06607065 ICD Code: I48.91 - UNSPECIFIED ATRIAL FIBRILLATION Status: Chronic Current Visit: No Qualifiers: Atrial fibrillation type: persistent Qualified Code(s): I48.1 - Persistent atrial fibrillation (10) Bipolar 1 disorder SNOMED Code(s): 923823026 ICD Code: F31.9 - BIPOLAR DISORDER, UNSPECIFIED Status: Chronic Current Visit: No (11) Hypertension SNOMED Code(s): 05013937 ICD Code: I10 - ESSENTIAL (PRIMARY) HYPERTENSION Status: Chronic Current Visit: No Qualifiers: Hypertension type: essential hypertension Qualified Code(s): I10 - Essential (primary) hypertension (12) Morbid obesity SNOMED Code(s): 223120356 ICD Code: E66.01 - MORBID (SEVERE) OBESITY DUE TO EXCESS CALORIES Status: Chronic Current Visit: No (13) Sleep apnea SNOMED Code(s): 53616137 ICD Code: G47.30 - SLEEP APNEA, UNSPECIFIED Status: Chronic Current Visit : No Qualifiers: Sleep apnea type: unspecified type Qualified Code(s): G47.30 - Sleep apnea , unspecified - Patient Summary/Data Operative Procedure(s) Performed: none Complications: none Consults: none Labs Pending at D/C: none Recommended Follow-up Testing/Procedures: none Planned Operative Procedure(s) after DC: none Hospital Course: Patient was admitted and started on IV ceftriaxone. She was also started on IV fluids. Her urine culture did grow 2 different bacteria, both of which were susceptible to the ceftriaxone. She completed her course of antibiotics while hospitalized. Her sodium did improve slightly with IV fluids but remained high at the time of discharge. Her mentation had returned to baseline though and it was felt this could be followed as an outpatient. It is important that she drink at least 1500 cc of fluid daily. She will be dismissed back to the care center today and will have lab again next week. Her home medications were continued and her hospitalization was otherwise uncomplicated. - Discharge Plan *PRESCRIPTION DRUG MONITORING PROGRAM REVIEWED*: Not Applicable *COPY OF PRESCRIPTION DRUG MONITORING REPORT IN PATIENT CJ: Not Applicable Home Medications: Home Meds Acetaminophen [Tylenol] 650 mg PO TID 04/08/18 [History] Albuterol [Proventil] 2.5 mg INH QIDRT 04/08/18 [History] Allopurinol [Zyloprim] 200 mg PO DAILY 04/08/18 [History] Bisacodyl [Dulcolax] 5 mg PO DAILY PRN 04/08/18 [History] Calcium Citrate/Vitamin D3 [Calcium Citrate - Vit D Caplet] 1 each PO DAILY [History] Cholecalciferol (Vitamin D3) [Vitamin D3] 1,000 units PO DAILY 04/08/18 [History ] Divalproex Sodium [Depakote] 250 mg PO DAILY 04/08/18 [History] Divalproex Sodium [Depakote] 500 mg PO BEDTIME 04/08/18 [History] Ferrous Gluconate 324 mg PO DAILY 04/08/18 [History] Furosemide [Lasix] 80 mg PO BID 04/08/18 [History] Gluc 2KCl/Chondr/Ralph Hy/Hy Ac [Glucosamine & Chondroitin Cap] 1 each PO BID [History] Insulin Aspart [NovoLOG] 9 unit SQ ACDINNER 04/08/18 [History] Insulin Aspart [NovoLOG] 18 unit SQ ASDIRECTED 04/08/18 [History] Insulin Glarg,Human.Rec.Analog [Lantus] 14 unit SUBCUT BEDTIME 04/08/18 [History ] Menthol [Biofreeze] 1 applic TP BID 04/08/18 [History] Metoprolol Tartrate [Lopressor] 100 mg PO BID 04/08/18 [History] Multivitamin [Multivitamins] 1 each PO DAILY 04/08/18 [History] Potassium Chloride [Klor-Con M20] 20 meq PO BID 04/08/18 [History] Rivaroxaban [Xarelto] 20 mg PO DAILY 04/08/18 [History] Sennosides/Docusate Sodium [Senna Plus Tablet] 1 tab PO DAILY 04/08/18 [History] Sertraline HCl [Zoloft] 50 mg PO DAILY 04/08/18 [History] Digoxin 125 mcg PO DAILY #30 tablet 04/12/18 [Rx] Forms: ED Department Discharge Referrals: Delores Hill MD [Primary Care Provider] - - Discharge Summary/Plan Comment DC Time >30 min.: No - General Info Date of Service: 05/24/18 Subjective Update: No overnight events. Patient is sitting up eating breakfast. Does not appear in distress. Does not answer questions. - Review of Systems Systems Review Comment: Unable to assess due to patient not answering questions. - Patient Data Vitals - Most Recent: Last Vital Signs Temp 36.1 C 05/24/18 05:58 Pulse 64 05/24/18 05:58 Resp 16 05/24/18 05:58 BP 117/63 05/24/18 05:58 Pulse Ox 98 05/24/18 05:58 Weight - Most Recent: 113.398 kg I&O - Last 24 hours: Intake & Output 05/23/18 05/24/18 05/24/18 22:59 06:59 14:59 Intake Total 240 60 Balance 240 60 Lab Results - Last 24 hrs: Laboratory Results - last 24 hr 05/23/18 05/23/18 05/23/18 Range/Units 11:41 13:00 17:24 WBC (4.0-10.0) x10^3/uL RBC (4.00-5.50) x10^6/uL Hgb (12.0-16.0) g/dL Hct (33.0-47.0) % MCV (78.0-93.0) fL MCH (26.0-32.0) pg MCHC (32.0-36.0) g/dL RDW Coeff of Neema (10.0-15.0) % Plt Count (130-400) x10^3/uL Neut % (Auto) (50.0-80.0) % Lymph % (Auto) (25.0-50.0) % [place] % (Auto) (2.0-11.0) % Eos % (Auto) (0.0-4.0) % Baso % (Auto) (0.2-1.2) % Sodium 152 H (136-145) mmol/L Potassium 3.7 (3.5-5.1) mmol/L Chloride 116 H (98-107) mmol/L Carbon Dioxide 28 (21-32) mmol/L Anion Gap 11.7 (10-20) mmol/L BUN 31 H (7-18) mg/dL Creatinine 1.4 H (0.55-1.02) mg/dL Est Cr Clr Drug Dosing 33.65 mL/min Estimated GFR (MDRD) 37 Glucose 336 H (74-106) mg/dL POC Glucose 270 H 291 H (74-106) mg/dL Calcium 8.6 (8.5-10.1) mg/dL 05/24/18 05/24/18 05/24/18 Range/Units 04:54 06:34 06:34 WBC 7.3 (4.0-10.0) x10^3/uL RBC 4.51 (4.00-5.50) x10^6/uL Hgb 14.0 (12.0-16.0) g/dL Hct 45.6 (33.0-47.0) % MCV 101.1 H (78.0-93.0) fL MCH 31.0 (26.0-32.0) pg MCHC 30.7 L (32.0-36.0) g/dL RDW Coeff of Neema 13.4 (10.0-15.0) % Plt Count 154 (130-400) x10^3/uL Neut % (Auto) 71.4 (50.0-80.0) % Lymph % (Auto) 19.7 L (25.0-50.0) % [place] % (Auto) 7.4 (2.0-11.0) % Eos % (Auto) 1.2 (0.0-4.0) % Baso % (Auto) 0.3 (0.2-1.2) % Sodium 156 H (136-145) mmol/L Potassium 3.2 L (3.5-5.1) mmol/L Chloride 118 H (98-107) mmol/L Carbon Dioxide 30 (21-32) mmol/L Anion Gap 11.2 (10-20) mmol/L BUN 28 H (7-18) mg/dL Creatinine 1.2 H (0.55-1.02) mg/dL Est Cr Clr Drug Dosing 39.25 mL/min Estimated GFR (MDRD) 44 Glucose 151 H (74-106) mg/dL POC Glucose 147 H (74-106) mg/dL Calcium 8.7 (8.5-10.1) mg/dL NIKKI Results - Last 24 hrs: Microbiology 05/20/18 15:06 Aerobic Blood Culture - Preliminary Blood - Venous - Lab Draw NO GROWTH AFTER 3 DAYS Anaerobic Blood Culture - Final 05/20/18 15:00 Aerobic Blood Culture - Preliminary Blood - Venous NO GROWTH AFTER 3 DAYS Anaerobic Blood Culture - Final Med Orders - Current: Current Medications Acetaminophen (Tylenol) 650 mg PO TID [facility] Last Admin: 05/23/18 22:55 Dose: 650 mg Allopurinol (Zyloprim) 200 mg PO DAILY [facility] Last Admin: 05/23/18 07:35 Dose: 200 mg Bisacodyl (Dulcolax) 5 mg PO DAILY PRN PRN Reason: Constipation Calcium Citrate (Calcium Citrate + D) 1 tab PO DAILY [facility] Last Admin: 05/23/18 07:34 Dose: 1 tab Ceftriaxone Sodium (Rocephin) 2 gm IVPUSH DAILY@1500 [facility] Last Admin: 05/23/18 14:27 Dose: 2 gm Cholecalciferol (Vitamin D3) 1,000 units PO DAILY [facility] Last Admin: 05/23/18 07:35 Dose: 1,000 units Digoxin (Lanoxin) 125 mcg PO DAILY [facility] Last Admin: 05/23/18 07:35 Dose: 125 mcg Divalproex Sodium (Divalproex Sodium) 250 mg PO DAILY [facility] Last Admin: 05/23/18 07:35 Dose: 250 mg Divalproex Sodium (Divalproex Sodium) 500 mg PO BEDTIME [facility] Last Admin: 05/23/18 22:56 Dose: 500 mg Ferrous Sulfate (Ferrous Sulfate) 325 mg PO DAILY [facility] Last Admin: 05/23/18 07:34 Dose: 325 mg Furosemide (Lasix) 80 mg PO BIDDIURETIC [facility] Last Admin: 05/23/18 16:24 Dose: 80 mg Insulin Glargine (Lantus Solostar) 14 units SUBCUT BEDTIME [facility] Last Admin: 05/23/18 22:57 Dose: 14 units Insulin Human Regular (Humulin R) 0 unit SUBCUT TIDMEALS [facility]; Protocol Last Admin: 05/23/18 18:09 Dose: 6 units Metoprolol Tartrate (Lopressor) 100 mg PO BID [facility] Last Admin: 05/23/18 22:55 Dose: 100 mg Multivitamins/Minerals (Thera M Plus) 1 tab PO DAILY [facility] Last Admin: 05/23/18 07:34 Dose: 1 tab Potassium Chloride (Klor-Con M20) 20 meq PO BID [facility] Last Admin: 05/23/18 22:56 Dose: 20 meq Rivaroxaban (Xarelto) 15 mg PO DAILY [facility] Last Admin: 05/23/18 07:35 Dose: 15 mg Senna/Docusate Sodium (Senna Plus) 1 tab PO DAILY [facility] Last Admin: 05/23/18 07:35 Dose: 1 tab Sertraline HCl (Zoloft) 50 mg PO DAILY [facility] Last Admin: 05/23/18 07:35 Dose: 50 mg Sodium Chloride (Saline Flush) 10 ml FLUSH ASDIRECTED PRN PRN Reason: Keep Vein Open Last Admin: 05/23/18 14:28 Dose: 10 ml Discontinued Medications Ceftriaxone Sodium (Rocephin) 2 gm IVPUSH STAT ONE Stop: 05/20/18 15:31 Last Admin: 05/20/18 15:40 Dose: 2 gm Sodium Chloride (Normal Saline) 1,000 mls @ 125 mls/hr IV ASDIRECTED [facility] Last Admin: 05/21/18 04:39 Dose: 125 mls/hr Sodium Chloride (Normal Saline) 1,000 mls @ 175 mls/hr IV .BOLUS ONE Stop: 05/20/18 22:18 Last Admin: 05/20/18 16:46 Dose: 175 mls/hr Dextrose/Water (Dextrose 5% In Water) 1,000 mls @ 100 mls/hr IV ASDIRECTED [facility] Last Admin: 05/21/18 21:01 Dose: 100 mls/hr Sodium Chloride (Sodium Chloride 0.45%) 1,000 mls @ 200 mls/hr IV ASDIRECTED [facility] Last Admin: 05/23/18 04:54 Dose: 100 mls/hr Insulin Human Lispro (Humalog) 9 unit SUBCUT ACDINNER [facility] Insulin Human Lispro (Humalog) 18 unit SUBCUT DAILY@1100 [facility] Insulin Human Regular (Humulin R) 0 unit SUBCUT TIDMEALS [facility]; Protocol Last Admin: 05/21/18 08:00 Dose: Not Given - Exam General: Reports: Alert, Cooperative, No Acute Distress HEENT: Reports: Mucous Membr. Moist/Bertha Neck: Reports: Supple, Trachea Midline, No Thyromegaly. Denies: Lymphadenopathy Lungs: Reports: Clear to Auscultation, Normal Respiratory Effort Cardiovascular: Reports: Regular Rate, No Murmurs, Irregular Rhythm GI/Abdominal Exam: Normal Bowel Sounds, Soft, Non-Tender, No Organomegaly, No Distention, No Mass Extremities: Non-Tender, No Pedal Edema, Normal Capillary Refill Skin: Reports: Warm, Dry, Intact
[2018-05-24] MEDS: Metoprolol Tartrate 50 MG Tab PO SCH (08:52)
[2018-05-24] MEDS: Acetaminophen 325 MG Tab PO SCH (08:52)
[2018-05-24] MEDS: Furosemide 80 MG Tab PO SCH (08:53)
[2018-05-24] MEDS: Cholecalciferol (Vitamin D3) 1,000 Unit Tab PO SCH (08:53)
[2018-05-24] MEDS: Rivaroxaban 10 MG Tab PO SCH (08:53)
[2018-05-24] MEDS: Potassium Chloride 20 MEQ Tab.ER PO SCH (08:53)
[2018-05-24] MEDS: Calcium Citrate/Vitamin D3 315 MG-250 Unit Tab PO SCH (08:53)
[2018-05-24] MEDS: Divalproex Sodium Delayed-Release 250 MG Tab.CR PO SCH (08:53)
[2018-05-24] MEDS: Ferrous Sulfate 325 MG Tab PO SCH (08:53)
[2018-05-24] MEDS: Allopurinol 100 MG Tab PO SCH (08:53)
[2018-05-24] MEDS: Digoxin 125 MCG Tab PO SCH (08:53)
[2018-05-24] MEDS: Sertraline 50 MG Tab PO SCH (08:54)
[2018-05-24] MEDS: Multivitamins with Iron/Calcium/Folic Acid/Minerals Tab PO SCH (08:54)
[2018-05-24] MEDS: Insulin Regular, Human 100 Units/ML 3 ML Vial SUBCUT SCH (09:03)
== END 2018-05-24 09:15 | DRG 690 ==
LOC: VM.ED 14:22 → VM.MS 15:50
PROVIDERS: ADMIT Physician Assistant; ATTEND Family Medicine
DX: N30.00 Acute cystitis without hematuria (principal); N17.9 Acute kidney failure, unspecified; I13.0 Hypertensive heart and chronic kidney disease with heart failure and stage 1 through stage 4 chronic kidney disease, or unspecified chronic kidney disease; I50.32 Chronic diastolic (congestive) heart failure; E87.0 Hyperosmolality and hypernatremia; I48.1 Persistent atrial fibrillation; Z68.41 Body mass index [BMI] 40.0-44.9, adult; Z66 Do not resuscitate; N18.3 Chronic kidney disease, stage 3 (moderate); E11.22 Type 2 diabetes mellitus with diabetic chronic kidney disease; E86.0 Dehydration; F03.90 Unspecified dementia, unspecified severity, without behavioral disturbance, psychotic disturbance, mood disturbance, and anxiety; F31.9 Bipolar disorder, unspecified; E66.01 Morbid (severe) obesity due to excess calories; I25.10 Atherosclerotic heart disease of native coronary artery without angina pectoris; E78.00 Pure hypercholesterolemia, unspecified; K21.9 Gastro-esophageal reflux disease without esophagitis; M19.90 Unspecified osteoarthritis, unspecified site; F41.9 Anxiety disorder, unspecified; D50.9 Iron deficiency anemia, unspecified; G47.33 Obstructive sleep apnea (adult) (pediatric); Z79.4 Long term (current) use of insulin; Z79.899 Other long term (current) drug therapy; Z79.01 Long term (current) use of anticoagulants; Z87.440 Personal history of urinary (tract) infections; Z86.73 Personal history of transient ischemic attack (TIA), and cerebral infarction without residual deficits
CPT/HCPCS: 36415; 71045; 80048; 80053; 80162; 81001; 82962; 83605; 83735; 83880; 84100; 84443; 84484; 85025; 85610; 86140; 87040; 87086; 87088; 87186; 87804; 87804-59; 93005; 96361; 96374; 99285; A9270-GY; J0696; J1815-GY; J7030; J7060

== ENCOUNTER 2018-05-28 17:49 | Inpatient (IN) | payer MEDICARE, MEDICAID ==
[2018-05-28] MEDS ORDERED: Sodium Chloride 0.9% 10 ML Syringe FLUSH PRN (18:02)
[2018-05-28] MEDS ORDERED: Furosemide 40 MG/4 ML VIAL IV ONE (18:02)
--- NOTE | 2018-05-28 18:49 | EDM.PDOC ---
ED HPI GENERAL MEDICAL PROBLEM - General Chief Complaint: Respiratory Problem Stated Complaint: low oxygen saturations, gurgled breathing Time Seen by Provider: 05/28/18 17:58 Source of Information: Reports: EMS, [facility] Records History Limitations: Reports: No Limitations - History of Present Illness INITIAL COMMENTS - FREE TEXT/NARRATIVE: Patient brought to the ED by EMS after correction called with reportedly oxygen saturations in the 70% range on room air. 2L of nasal cannula brought to 80%. EMS arrived, put on 4L nasal cannula, saturations mid 90%. Reports of gurgling respirations. Discharged from this facility last week after having urosepsis requiring admission. Patient is non verbal. Onset: Today Severity: Moderate Improves with: Reports: None Associated Symptoms: Reports: No Other Symptoms - Related Data Allergies Allergy/AdvReac Type Severity Reaction Status Date / Time No Known Allergies Allergy Verified 05/28/18 18:13 Home Meds: Home Meds Acetaminophen [Tylenol] 650 mg PO TID 04/08/18 [History] Albuterol [Proventil] 2.5 mg INH QIDRT 04/08/18 [History] Allopurinol [Zyloprim] 200 mg PO DAILY 04/08/18 [History] Bisacodyl [Dulcolax] 5 mg PO DAILY PRN 04/08/18 [History] Calcium Citrate/Vitamin D3 [Calcium Citrate - Vit D Caplet] 1 each PO DAILY [History] Cholecalciferol (Vitamin D3) [Vitamin D3] 1,000 units PO DAILY 04/08/18 [History ] Divalproex Sodium [Depakote] 250 mg PO DAILY 04/08/18 [History] Divalproex Sodium [Depakote] 500 mg PO BEDTIME 04/08/18 [History] Ferrous Gluconate 324 mg PO DAILY 04/08/18 [History] Furosemide [Lasix] 80 mg PO BID 04/08/18 [History] Gluc 2KCl/Chondr/Ralph Hy/Hy Ac [Glucosamine & Chondroitin Cap] 1 each PO BID [History] Insulin Aspart [NovoLOG] 9 unit SQ ACDINNER 04/08/18 [History] Insulin Aspart [NovoLOG] 18 unit SQ ASDIRECTED 04/08/18 [History] Insulin Glarg,Human.Rec.Analog [Lantus] 14 unit SUBCUT BEDTIME 12/15/18 [History ] Menthol [Biofreeze] 1 applic TP BID 04/08/18 [History] Metoprolol Tartrate [Lopressor] 100 mg PO BID 04/08/18 [History] Multivitamin [Multivitamins] 1 each PO DAILY 04/08/18 [History] Potassium Chloride [Klor-Con M20] 20 meq PO BID 04/08/18 [History] Rivaroxaban [Xarelto] 20 mg PO DAILY 04/08/18 [History] Sennosides/Docusate Sodium [Senna Plus Tablet] 1 tab PO DAILY 04/08/18 [History] Sertraline HCl [Zoloft] 50 mg PO DAILY 04/08/18 [History] Digoxin 125 mcg PO DAILY #30 tablet 04/12/18 [Rx] Past Medical History Cardiovascular History: Reports: Afib, CAD, Heart Failure, High Cholesterol, Hypertension Gastrointestinal History: Reports: GERD Genitourinary History: Reports: Urinary Incontinence Musculoskeletal History: Reports: Osteoarthritis Neurological History: Reports: TIA Psychiatric History: Reports: Anxiety, Bipolar, Dementia, Depression Endocrine/Metabolic History: Reports: Diabetes, Type II Hematologic History: Reports: Anemia, Iron Deficiency ED ROS GENERAL - Review of Systems Review Of Systems: Unable To Obtain ED EXAM, GENERAL - Physical Exam Exam: See Below Exam Limited By: No Limitations General Appearance: Alert, WD/WN, No Apparent Distress Eye Exam: Bilateral Eye: EOMI, Normal Inspection, PERRL Ears: Normal TMs Throat/Mouth: Normal Inspection, Normal Lips, Normal Teeth, Normal Gums, Normal Oropharynx, Normal Voice, No Airway Compromise Head: Atraumatic, Normocephalic Neck: Normal Inspection, Supple, Non-Tender, Full Range of Motion Respiratory/Chest: Rales (bilateral bases) Cardiovascular: Normal Peripheral Pulses, Regular Rate, Rhythm, No Edema, No Gallop, No JVD, No Murmur, No Rub GI/Abdominal: Normal Bowel Sounds, Soft, Non-Tender, No Organomegaly, No Distention, No Abnormal Bruit, No Mass Extremities: Pedal Edema Neurological: Other (no response) Skin Exam: Warm, Dry, Intact, Normal Color, No Rash Course - Vital Signs Last Recorded V/S: Last Vital Signs Temp 36.9 C 05/28/18 18:13 Pulse 112 H 05/28/18 18:46 Resp 14 05/28/18 18:46 BP 118/39 L 05/28/18 18:46 Pulse Ox 92 L 05/28/18 18:46 - Orders/Labs/Meds Orders: Active Orders 24 hr Category Date Time Status EKG 12 Lead [EKG Documentation Completion] [] STAT Care 05/28/18 18:04 Active Oxygen Therapy, ED [RC] ASDIRECTED Care 05/28/18 18:49 Active Urinary Catheter Assessment [RC] ASDIRECTED Care 05/28/18 18:36 Active Urinary Catheter Insertion [Insert Urinary Catheter] [ Care 05/28/18 18:00 Ordered OM.PC] ONETIME Chest 1V Frontal [CR] Stat Exams 05/28/18 18:03 Taken Sodium Chloride 0.9% [Saline Flush] Med 05/28/18 18:02 Active 10 ml FLUSH ASDIRECTED PRN Saline Lock Insert [OM.PC] Routine Oth 05/28/18 18:02 Ordered Medication Orders Sodium Chloride (Saline Flush) 10 ml FLUSH ASDIRECTED PRN PRN Reason: Keep Vein Open Last Admin: 05/28/18 18:23 Dose: 10 ml Labs: Laboratory Tests 05/28/18 05/28/18 05/28/18 Range/Units 18:03 18:36 18:36 WBC 12.9 H (4.0-10.0) x10^3/uL RBC 4.77 (4.00-5.50) x10^6/uL Hgb 14.9 (12.0-16.0) g/dL Hct 48.9 H (33.0-47.0) % MCV 102.5 H (78.0-93.0) fL MCH 31.2 (26.0-32.0) pg MCHC 30.5 L (32.0-36.0) g/dL RDW Coeff of Neema 14.3 (10.0-15.0) % Plt Count 196 (130-400) x10^3/uL Neut % (Auto) 84.4 H (50.0-80.0) % Lymph % (Auto) 8.7 L (25.0-50.0) % [place] % (Auto) 6.4 (2.0-11.0) % Eos % (Auto) 0.2 (0.0-4.0) % Baso % (Auto) 0.3 (0.2-1.2) % Sodium 158 H (136-145) mmol/L Potassium 3.6 (3.5-5.1) mmol/L Chloride 120 H (98-107) mmol/L Carbon Dioxide 29 (21-32) mmol/L Anion Gap 12.6 (10-20) mmol/L BUN 49 H (7-18) mg/dL Creatinine 1.5 H (0.55-1.02) mg/dL Est Cr Clr Drug Dosing TNP Estimated GFR (MDRD) 34 Glucose 281 H (74-106) mg/dL Calcium 9.4 (8.5-10.1) mg/dL Corrected Calcium 10.12 H (8.5-10.1) mg/dL Total Bilirubin 0.6 (0.2-1.0) mg/dL AST 21 (15-37) U/L ALT 25 (14-59) U/L Alkaline Phosphatase 89 (46-116) U/L Creatine Kinase 69 (26-192) U/L Troponin I 0.110 H* (<=0.056) ng/mL NT-Pro-B Natriuret Pep 9735 H (<=125) pg/mL Total Protein 7.3 (6.4-8.2) g/dL Albumin 3.1 L (3.4-5.0) g/dL Globulin 4.2 Albumin/Globulin Ratio 0.74 TSH, Ultra Sensitive 3.909 H (0.358-3.74) uIU/mL Urine Color Yellow (YELLOW) Urine Appearance Cloudy H (CLEAR) Urine pH 5.5 (5.0-8.0) Ur Specific [place] 1.015 Urine Protein Negative (NEGATIVE) mg/dL Urine Glucose (UA) Negative (NEGATIVE) mg/dL Urine Ketones Negative (NEGATIVE) mg/dL Urine Occult Blood Negative (NEGATIVE) Urine Nitrite Negative (NEGATIVE) Urine Bilirubin Negative (NEGATIVE) Urine Urobilinogen 0.2 (0.2) EU/dL Ur Leukocyte Esterase Small H (NEGATIVE) Urine RBC 0-5 (NOT SEEN) /HPF Urine WBC 0-5 (NOT SEEN) /HPF Ur Squamous Epith Cells Moderate H (NEGATIVE) /HPF Urine Bacteria Few H (NEGATIVE) /HPF Hyaline Casts Few H (NEGATIVE) /HPF Urine Mucus Few H (NEGATIVE) /LPF Digoxin 1.02 (0.90-2.00) ng/mL Meds: Medications Generic Name Dose Route Start Last Admin Trade Name Freq PRN Reason Stop Dose Admin Sodium Chloride 10 ml 05/28/18 18:02 05/28/18 18:23 Saline Flush FLUSH 10 ml ASDIRECTED PRN Administration Keep Vein Open Discontinued Medications Generic Name Dose Route Start Last Admin Trade Name Freq PRN Reason Stop Dose Admin Furosemide 40 mg 05/28/18 18:02 05/28/18 18:22 Lasix IV 05/28/18 18:03 40 mg ONETIME ONE Administration Departure - Departure Time of Disposition: 20:50 Disposition: Admitted As Inpatient 64 Condition: Fair Clinical Impression: Hypoxia, Hypernatremia CHF (congestive heart failure) Qualifiers: Heart failure type: diastolic Heart failure chronicity: chronic Qualified Code( s): I50.32 - Chronic diastolic (congestive) heart failure - Discharge Information ED Communication - ED Communication Date/Time Date: 05/28/18 Time Called: 20:20 - Discussed Case With (1) Discussed Case With (1): Admitting Provider (Dr. Baltazar contacted regarding patient. He will admit acute.) - Problem List & Annotations (1) Hypernatremia SNOMED Code(s): 32512625 Code(s): E87.0 - HYPEROSMOLALITY AND HYPERNATREMIA Status: Acute Priority : Medium Current Visit: Yes (2) CHF (congestive heart failure) SNOMED Code(s): 88255900 Code(s): I50.9 - HEART FAILURE, UNSPECIFIED Status: Chronic Current Visit : Yes Qualifiers: Heart failure type: diastolic Heart failure chronicity: chronic Qualified Code(s): I50.32 - Chronic diastolic (congestive) heart failure (3) Hypoxia SNOMED Code(s): 305931522 Code(s): R09.02 - HYPOXEMIA Status: Acute Current Visit: Yes - Problem List Review Problem List Initiated/Reviewed/Updated: Yes - My Orders Last 24 Hours: My Active Orders 05/28/18 18:00 Urinary Catheter Insertion [Insert Urinary Catheter] [OM.PC] ONETIME 05/28/18 18:02 Sodium Chloride 0.9% [Saline Flush] 10 ml FLUSH ASDIRECTED PRN Saline Lock Insert [OM.PC] Routine 05/28/18 18:03 Chest 1V Frontal [CR] Stat 05/28/18 18:04 EKG 12 Lead [EKG Documentation Completion] [RC] STAT 05/28/18 18:36 Urinary Catheter Assessment [RC] ASDIRECTED 05/28/18 18:49 Oxygen Therapy, ED [RC] ASDIRECTED - Assessment/Plan Last 24 Hours: My Active Orders 05/28/18 18:00 Urinary Catheter Insertion [Insert Urinary Catheter] [OM.PC] ONETIME 05/28/18 18:02 Sodium Chloride 0.9% [Saline Flush] 10 ml FLUSH ASDIRECTED PRN Saline Lock Insert [OM.PC] Routine 05/28/18 18:03 Chest 1V Frontal [CR] Stat 05/28/18 18:04 EKG 12 Lead [EKG Documentation Completion] [RC] STAT 05/28/18 18:36 Urinary Catheter Assessment [RC] ASDIRECTED 05/28/18 18:49 Oxygen Therapy, ED [RC] ASDIRECTED Assessment:: CHF exacerbation Hypoxia Hypernatremia Plan: Admit to inpatient with Dr. Baltazar as admitting provider.
[2018-05-28 19:22] LABS: CHLORIDE,CL 120 mmol/L (98-107); SODIUM,NA 158 mmol/L (136-145)
[2018-05-28 19:26] LABS: ANION GAP 12.6 mmol/L (10-20)
[2018-05-28] MEDS ORDERED: Sodium Chloride 0.45% with KCl 1,000 ML IV SCH (21:45)
--- NOTE | 2018-05-28 22:01 | PCM.HP ---
H&P History of Present Illness - General Date of Service: 05/28/18 Admit Problem/Dx: Admission Diagnosis/Problem Admission Diagnosis/Problem Hypoxia H&P update 05/28/18: HPI: She was in hospital 05/20 until 05/24 with possible urosepsis, seemed to have a UTI, also had hypernatremia and was toxic. She had 2 organisms on culture, both sensitive to the Rocephin that she got in hospital. Her Na+ improved and she looked better so she went home from hospital, to have lab again next week. She has diabetes type 2, is on Lantus and NovoLog, dementia, and chronic atrial fibrillation for which she is on Xarelto. [place] the jail this evening she suddenly had oximetry down into the 70s, seemed obtunded, so she was brought to ER by ambulance. In the ER she also had some hypoxia, was 92% on 4 L. By the time she got upstairs her oximetry was extremely variable, all the way from the low 80s up to 92% on room air. She is not noted to be having Palmer-Cameron respiration but she is quite stuporous and her oximetry is quite variable. Na+ is mildly elevated at 158, K+ 3.6, because her proBNP was elevated at 9700 she was given Lasix, but she does not appear over hydrated. She does have elevated troponin, this also led to consideration of relative cardiac ischemia from CHF. Urinalysis is unremarkable. Medical and Surgical History: See previous H&P Systems Review: She is stuporous, react weakly to pain but cannot answer questions, and makes no attempt at verbal response. Exam: -Obesity, VS OK with irregular rhythm consistent with atrial fibrillation, rate OK at 90-100 -No murmur -Mouth is dry, probably from mouth breathing; edentulous -Lungs sound clear, no dyspnea -Abdomen soft, not distended, no apparent tenderness -No leg edema Impression: -Variable hypoxia, probably central, though she does not have Palmer-Cameron respiration -Not able to eat, can continue Lantus but will not get mealtime insulin -Mild hypernatremia Plan: -Because of the hypernatremia she will get IV fluid with NS, with 20 of KCl -Will not try to control her diabetes closely -DNR/DNI as she was at [facility] - Related Data Allergies/Adverse Reactions: Allergies Allergy/AdvReac Type Severity Reaction Status Date / Time No Known Allergies Allergy Verified 05/28/18 18:13 Home Medications: Home Meds Acetaminophen [Tylenol] 650 mg PO TID 04/08/18 [History] Albuterol [Proventil] 2.5 mg INH QIDRT 04/08/18 [History] Allopurinol [Zyloprim] 200 mg PO DAILY 04/08/18 [History] Bisacodyl [Dulcolax] 5 mg PO DAILY PRN 04/08/18 [History] Calcium Citrate/Vitamin D3 [Calcium Citrate - Vit D Caplet] 1 each PO DAILY [History] Cholecalciferol (Vitamin D3) [Vitamin D3] 1,000 units PO DAILY 04/08/18 [History ] Divalproex Sodium [Depakote] 250 mg PO DAILY 04/08/18 [History] Divalproex Sodium [Depakote] 500 mg PO BEDTIME 04/08/18 [History] Ferrous Gluconate 324 mg PO DAILY 04/08/18 [History] Furosemide [Lasix] 80 mg PO BID 04/08/18 [History] Gluc 2KCl/Chondr/Ralph Hy/Hy Ac [Glucosamine & Chondroitin Cap] 1 each PO BID [History] Insulin Aspart [NovoLOG] 9 unit SQ ACDINNER 04/08/18 [History] Insulin Aspart [NovoLOG] 18 unit SQ ASDIRECTED 04/08/18 [History] Insulin Glarg,Human.Rec.Analog [Lantus] 14 unit SUBCUT BEDTIME 04/08/18 [History ] Menthol [Biofreeze] 1 applic TP BID 04/08/18 [History] Metoprolol Tartrate [Lopressor] 100 mg PO BID 04/08/18 [History] Multivitamin [Multivitamins] 1 each PO DAILY 04/08/18 [History] Potassium Chloride [Klor-Con M20] 20 meq PO BID 04/08/18 [History] Rivaroxaban [Xarelto] 20 mg PO DAILY 04/08/18 [History] Sennosides/Docusate Sodium [Senna Plus Tablet] 1 tab PO DAILY 04/08/18 [History] Sertraline HCl [Zoloft] 50 mg PO DAILY 04/08/18 [History] Digoxin 125 mcg PO DAILY #30 tablet 04/12/18 [Rx] Past Medical History Cardiovascular History: Reports: Afib, CAD, Heart Failure, High Cholesterol, Hypertension Gastrointestinal History: Reports: GERD Genitourinary History: Reports: Urinary Incontinence Musculoskeletal History: Reports: Osteoarthritis Neurological History: Reports: TIA Psychiatric History: Reports: Anxiety, Bipolar, Dementia, Depression Endocrine/Metabolic History: Reports: Diabetes, Type II Hematologic History: Reports: Anemia, Iron Deficiency Social & Family History - Tobacco Use Smoking Status *Q: Unknown Ever Smoked - Recreational Drug Use Recreational Drug Use: No H&P Review of Systems - Review of Systems: Review Of Systems: See Below Exam - Exam Exam: See Below - Vital Signs Vital Signs: Last Vital Signs Temp 35.9 C 05/28/18 21:19 Pulse 111 H 05/28/18 21:19 Resp 24 H 05/28/18 21:19 BP 132/63 05/28/18 21:19 Pulse Ox 91 L 05/28/18 21:19 Weight: 110.677 kg - Patient Data Lab Results Last 24 hrs: Laboratory Results - last 24 hr 05/28/18 05/28/18 05/28/18 Range/Units 18:03 18:36 18:36 WBC 12.9 H (4.0-10.0) x10^3/uL RBC 4.77 (4.00-5.50) x10^6/uL Hgb 14.9 (12.0-16.0) g/dL Hct 48.9 H (33.0-47.0) % MCV 102.5 H (78.0-93.0) fL MCH 31.2 (26.0-32.0) pg MCHC 30.5 L (32.0-36.0) g/dL RDW Coeff of Neema 14.3 (10.0-15.0) % Plt Count 196 (130-400) x10^3/uL Neut % (Auto) 84.4 H (50.0-80.0) % Lymph % (Auto) 8.7 L (25.0-50.0) % [place] % (Auto) 6.4 (2.0-11.0) % Eos % (Auto) 0.2 (0.0-4.0) % Baso % (Auto) 0.3 (0.2-1.2) % Sodium 158 H (136-145) mmol/L Potassium 3.6 (3.5-5.1) mmol/L Chloride 120 H (98-107) mmol/L Carbon Dioxide 29 (21-32) mmol/L Anion Gap 12.6 (10-20) mmol/L BUN 49 H (7-18) mg/dL Creatinine 1.5 H (0.55-1.02) mg/dL Est Cr Clr Drug Dosing TNP Estimated GFR (MDRD) 34 Glucose 281 H (74-106) mg/dL Calcium 9.4 (8.5-10.1) mg/dL Corrected Calcium 10.12 H (8.5-10.1) mg/dL Total Bilirubin 0.6 (0.2-1.0) mg/dL AST 21 (15-37) U/L ALT 25 (14-59) U/L Alkaline Phosphatase 89 (46-116) U/L Creatine Kinase 69 (26-192) U/L Troponin I 0.110 H* (<=0.056) ng/mL NT-Pro-B Natriuret Pep 9735 H (<=125) pg/mL Total Protein 7.3 (6.4-8.2) g/dL Albumin 3.1 L (3.4-5.0) g/dL Globulin 4.2 Albumin/Globulin Ratio 0.74 TSH, Ultra Sensitive 3.909 H (0.358-3.74) uIU/mL Urine Color Yellow (YELLOW) Urine Appearance Cloudy H (CLEAR) Urine pH 5.5 (5.0-8.0) Ur Specific [place] 1.015 Urine Protein Negative (NEGATIVE) mg/dL Urine Glucose (UA) Negative (NEGATIVE) mg/dL Urine Ketones Negative (NEGATIVE) mg/dL Urine Occult Blood Negative (NEGATIVE) Urine Nitrite Negative (NEGATIVE) Urine Bilirubin Negative (NEGATIVE) Urine Urobilinogen 0.2 (0.2) EU/dL Ur Leukocyte Esterase Small H (NEGATIVE) Urine RBC 0-5 (NOT SEEN) /HPF Urine WBC 0-5 (NOT SEEN) /HPF Ur Squamous Epith Cells Moderate H (NEGATIVE) /HPF Urine Bacteria Few H (NEGATIVE) /HPF Hyaline Casts Few H (NEGATIVE) /HPF Urine Mucus Few H (NEGATIVE) /LPF Digoxin 1.02 (0.90-2.00) ng/mL Result Diagrams: 05/28/18 18:36 05/28/18 18:36 Problem List Initiated/Reviewed/Updated: Yes Orders Last 24hrs: Active Orders 24 hr Category Date Time Status Patient Status [ADT] Routine ADT 05/28/18 20:18 Active Patient Status [ADT] Routine ADT 05/28/18 21:19 Active Blood Glucose Check, Bedside [RC] 07,11,17 Care 05/28/18 21:31 Active EKG 12 Lead [EKG Documentation Completion] [RC] STAT Care 05/28/18 18:04 Active Oxygen Therapy [RC] PRN Care 05/28/18 21:19 Active Oxygen Therapy, ED [RC] .PRN Care 05/28/18 18:49 Active Urinary Catheter Assessment [RC] .PRN Care 05/28/18 18:36 Active Urinary Catheter Insertion [Insert Urinary Catheter] [ Care 05/28/18 18:00 Ordered OM.PC] ONETIME VTE/DVT Education [RC] .PRN Care 05/28/18 21:19 Active Vital Signs [RC] 06,10,14,18,22,02 Care 05/28/18 21:19 Active Chest 1V Frontal [CR] Stat Exams 05/28/18 18:03 Taken BASIC METABOLIC PANEL,BMP [CHEM] Routine Lab 05/29/18 07:30 Ordered Albuterol [Proventil Neb Soln] Med 05/28/18 22:00 Active 2.5 mg INH QIDRT Digoxin [Lanoxin] Med 05/29/18 08:00 Pending 125 mcg PO DAILY Divalproex Sodium Med 05/29/18 20:00 Ordered 500 mg PO BEDTIME Divalproex Sodium [Depakote] Med 05/29/18 08:00 Ordered 250 mg PO DAILY Docusate Sodium/Sennosides [Senna Plus] Med 05/29/18 08:00 Ordered 1 tab PO DAILY Insulin Glarg,Human.Rec.Analog [Lantus] Med 05/29/18 20:00 Ordered 14 unit SUBCUT BEDTIME Metoprolol Tartrate Med 05/29/18 08:00 Ordered 100 mg PO BID Rivaroxaban [Xarelto] Med 05/29/18 08:00 Ordered 20 mg PO DAILY Sodium Chloride 0.45% with KCl [1/2 NS with 20 mEq KCl] Med 05/28/18 21:45 Active 1,000 ml IV ASDIRECTED Sodium Chloride 0.9% [Saline Flush] Med 05/28/18 18:02 Active 10 ml FLUSH ASDIRECTED PRN Saline Lock Insert [OM.PC] Routine Oth 05/28/18 18:02 Ordered Resuscitation Status Routine Resus Stat 05/28/18 21:19 Ordered Medication Orders Albuterol (Proventil Neb Soln) 2.5 mg INH QIDRT [facility] Digoxin (Lanoxin) 125 mcg PO DAILY [facility] Potassium Chloride/Sodium Chloride (1/2 Ns With 20 Meq Kcl) 1,000 mls @ 50 mls/ hr IV ASDIRECTED [facility] Non-Formulary Medication (Divalproex Sodium [Depakote]) 250 mg PO DAILY [facility] Non-Formulary Medication (Divalproex Sodium) 500 mg PO BEDTIME [facility] Non-Formulary Medication (Insulin Glarg,Human.Rec.Analog [Lantus]) 14 unit SUBCUT BEDTIME [facility] Non-Formulary Medication (Metoprolol Tartrate) 100 mg PO BID [facility] Rivaroxaban (Xarelto) 20 mg PO DAILY [facility] Senna/Docusate Sodium (Senna Plus) 1 tab PO DAILY [facility] Sodium Chloride (Saline Flush) 10 ml FLUSH ASDIRECTED PRN PRN Reason: Keep Vein Open Last Admin: 05/28/18 18:23 Dose: 10 ml
[2018-05-28] MEDS: Albuterol 0.083% 2.5 MG/3 ML Neb Soln INH SCH (22:12)
[2018-05-29] MEDS: Albuterol 0.083% 2.5 MG/3 ML Neb Soln INH SCH ×5 (06:38→20:09)
[2018-05-29] MEDS ORDERED: Metoprolol Tartrate 50 MG Tab PO SCH (08:00)
[2018-05-29] MEDS ORDERED: Digoxin 125 MCG Tab PO SCH (08:00)
[2018-05-29] MEDS ORDERED: Rivaroxaban 10 MG Tab PO SCH (08:00)
[2018-05-29] MEDS ORDERED: Divalproex Sodium Delayed-Release 125 MG Cap.Sprink PO SCH ×2 (08:00→20:00)
[2018-05-29 08:03] LABS: ANION GAP 16.5 mmol/L (10-20)
--- NOTE | 2018-05-29 08:03 | CR ---
[id number] RAD/RAD Chest PA or AP 1V EXAM: RAD Chest PA or AP 1V INDICATION: SOB, DECREASED O2 COMPARISON: May 20, 2018. DISCUSSION: Cardiomediastinal silhouette is stable in size and contour. No definite infiltrate, effusion, pneumothorax, or edema. Low lung volumes without associated vascular crowding. Bibasilar subsegmental atelectasis. IMPRESSION: No acute cardiopulmonary abnormality. Marky Kuo DO 05/28/18 1847 Thank you for allowing us to participate in the care of your patient.
[2018-05-29] MEDS ORDERED: Insulin Lispro 100 Unit/ML 3 ML KwikPen SUBCUT ONE (08:20)
[2018-05-29] MEDS ORDERED: Furosemide 40 MG/4 ML VIAL IV ONE (08:58)
--- NOTE | 2018-05-29 10:26 | CT ---
[id number] CT/CT Head WO IV EXAM: CT Head WO IV CLINICAL DATA: ALTERED MENTAL STATUS COMPARISON: NO PREVIOUS SIMILAR EXAM IS AVAILABLE FOR COMPARISON. FINDINGS: There is no mass or mass effect. There is no hemorrhage or hydrocephalus. There are no extra-axial fluid collections. There are no sites of abnormal attenuation. IMPRESSION: NO PLAIN CT EVIDENCE OF ACUTE INTRACRANIAL PROCESS. Luis Davis MD 05/29/18 1023 Thank you for allowing us to participate in the care of your patient.
--- NOTE | 2018-05-29 10:38 | PCM.PN ---
- General Info Date of Service: 05/29/18 Subjective Update: 68 yo female with complex past medical history hospital day #2 for hypoxia and altered mental status. Patient remains obtunded and not answering questions today. Overnight, oxygen saturations continued to fluctuate without any visual evidence of respiratory distress or changes in breathing pattern. - Review of Systems Systems Review Comment:: Unable to assess as patient is nonverbal. - Patient Data Vitals - Most Recent: Last Vital Signs Temp 36.6 C 05/29/18 09:50 Pulse 115 H 05/29/18 09:50 Resp 27 H 05/29/18 09:50 BP 134/67 05/29/18 09:50 Pulse Ox 90 L 05/29/18 09:50 Weight - Most Recent: 108.409 kg I&O - Last 24 Hours: Intake & Output 05/28/18 05/29/18 05/29/18 22:59 06:59 14:59 Intake Total 150 Balance 150 Lab Results Last 24 Hours: Laboratory Results - last 24 hr 05/28/18 05/28/18 05/28/18 Range/Units 18:03 18:36 18:36 WBC 12.9 H (4.0-10.0) x10^3/uL RBC 4.77 (4.00-5.50) x10^6/uL Hgb 14.9 (12.0-16.0) g/dL Hct 48.9 H (33.0-47.0) % MCV 102.5 H (78.0-93.0) fL MCH 31.2 (26.0-32.0) pg MCHC 30.5 L (32.0-36.0) g/dL RDW Coeff of Neema 14.3 (10.0-15.0) % Plt Count 196 (130-400) x10^3/uL Neut % (Auto) 84.4 H (50.0-80.0) % Lymph % (Auto) 8.7 L (25.0-50.0) % [place] % (Auto) 6.4 (2.0-11.0) % Eos % (Auto) 0.2 (0.0-4.0) % Baso % (Auto) 0.3 (0.2-1.2) % Sodium 158 H (136-145) mmol/L Potassium 3.6 (3.5-5.1) mmol/L Chloride 120 H (98-107) mmol/L Carbon Dioxide 29 (21-32) mmol/L Anion Gap 12.6 (10-20) mmol/L BUN 49 H (7-18) mg/dL Creatinine 1.5 H (0.55-1.02) mg/dL Est Cr Clr Drug Dosing TNP Estimated GFR (MDRD) 34 Glucose 281 H (74-106) mg/dL POC Glucose (74-106) mg/dL Calcium 9.4 (8.5-10.1) mg/dL Corrected Calcium 10.12 H (8.5-10.1) mg/dL Total Bilirubin 0.6 (0.2-1.0) mg/dL AST 21 (15-37) U/L ALT 25 (14-59) U/L Alkaline Phosphatase 89 (46-116) U/L Creatine Kinase 69 (26-192) U/L Troponin I 0.110 H* (<=0.056) ng/mL NT-Pro-B Natriuret Pep 9735 H (<=125) pg/mL Total Protein 7.3 (6.4-8.2) g/dL Albumin 3.1 L (3.4-5.0) g/dL Globulin 4.2 Albumin/Globulin Ratio 0.74 TSH, Ultra Sensitive 3.909 H (0.358-3.74) uIU/mL Urine Color Yellow (YELLOW) Urine Appearance Cloudy H (CLEAR) Urine pH 5.5 (5.0-8.0) Ur Specific [place] 1.015 Urine Protein Negative (NEGATIVE) mg/dL Urine Glucose (UA) Negative (NEGATIVE) mg/dL Urine Ketones Negative (NEGATIVE) mg/dL Urine Occult Blood Negative (NEGATIVE) Urine Nitrite Negative (NEGATIVE) Urine Bilirubin Negative (NEGATIVE) Urine Urobilinogen 0.2 (0.2) EU/dL Ur Leukocyte Esterase Small H (NEGATIVE) Urine RBC 0-5 (NOT SEEN) /HPF Urine WBC 0-5 (NOT SEEN) /HPF Ur Squamous Epith Cells Moderate H (NEGATIVE) /HPF Urine Bacteria Few H (NEGATIVE) /HPF Hyaline Casts Few H (NEGATIVE) /HPF Urine Mucus Few H (NEGATIVE) /LPF Digoxin 1.02 (0.90-2.00) ng/mL 05/29/18 05/29/18 Range/Units 07:00 07:20 WBC (4.0-10.0) x10^3/uL RBC (4.00-5.50) x10^6/uL Hgb (12.0-16.0) g/dL Hct (33.0-47.0) % MCV (78.0-93.0) fL MCH (26.0-32.0) pg MCHC (32.0-36.0) g/dL RDW Coeff of [place]ema (10.0-15.0) % Plt Count (130-400) x10^3/uL Neut % (Auto) (50.0-80.0) % Lymph % (Auto) (25.0-50.0) % [place] % (Auto) (2.0-11.0) % Eos % (Auto) (0.0-4.0) % Baso % (Auto) (0.2-1.2) % Sodium 158 H (136-145) mmol/L Potassium 4.5 (3.5-5.1) mmol/L Chloride 120 H (98-107) mmol/L Carbon Dioxide 26 (21-32) mmol/L Anion Gap 16.5 (10-20) mmol/L BUN 52 H (7-18) mg/dL Creatinine 1.5 H (0.55-1.02) mg/dL Est Cr Clr Drug Dosing 30.14 Estimated GFR (MDRD) 34 Glucose 429 H* (74-106) mg/dL POC Glucose 380 H (74-106) mg/dL Calcium 9.2 (8.5-10.1) mg/dL Corrected Calcium (8.5-10.1) mg/dL Total Bilirubin (0.2-1.0) mg/dL AST (15-37) U/L ALT (14-59) U/L Alkaline Phosphatase (46-116) U/L Creatine Kinase (26-192) U/L Troponin I (<=0.056) ng/mL NT-Pro-B Natriuret Pep (<=125) pg/mL Total Protein (6.4-8.2) g/dL Albumin (3.4-5.0) g/dL Globulin Albumin/Globulin Ratio TSH, Ultra Sensitive (0.358-3.74) uIU/mL Urine Color (YELLOW) Urine Appearance (CLEAR) Urine pH (5.0-8.0) Ur Specific [place] Urine Protein (NEGATIVE) mg/dL Urine Glucose (UA) (NEGATIVE) mg/dL Urine Ketones (NEGATIVE) mg/dL Urine Occult Blood (NEGATIVE) Urine Nitrite (NEGATIVE) Urine Bilirubin (NEGATIVE) Urine Urobilinogen (0.2) EU/dL Ur Leukocyte Esterase (NEGATIVE) Urine RBC (NOT SEEN) /HPF Urine WBC (NOT SEEN) /HPF Ur Squamous Epith Cells (NEGATIVE) /HPF Urine Bacteria (NEGATIVE) /HPF Hyaline Casts (NEGATIVE) /HPF Urine Mucus (NEGATIVE) /LPF Digoxin (0.90-2.00) ng/mL Med Orders - Current: Current Medications Albuterol (Proventil Neb Soln) 2.5 mg INH QIDRT [facility] Last Admin: 05/29/18 08:55 Dose: 2.5 mg Digoxin (Lanoxin) 125 mcg PO DAILY [facility] Non-Formulary Medication (Divalproex Sodium [Depakote]) 250 mg PO DAILY [facility] Non-Formulary Medication (Divalproex Sodium) 500 mg PO BEDTIME [facility] Non-Formulary Medication (Insulin Glarg,Human.Rec.Analog [Lantus]) 14 unit SUBCUT BEDTIME [facility] Non-Formulary Medication (Metoprolol Tartrate) 100 mg PO BID [facility] Rivaroxaban (Xarelto) 20 mg PO DAILY [facility] Senna/Docusate Sodium (Senna Plus) 1 tab PO DAILY [facility] Sodium Chloride (Saline Flush) 10 ml FLUSH ASDIRECTED PRN PRN Reason: Keep Vein Open Last Admin: 05/28/18 18:23 Dose: 10 ml Discontinued Medications Furosemide (Lasix) 40 mg IV ONETIME ONE Stop: 05/28/18 18:03 Last Admin: 05/28/18 18:22 Dose: 40 mg Furosemide (Lasix) 40 mg IV ONETIME ONE Stop: 05/29/18 08:59 Last Admin: 05/29/18 09:17 Dose: 40 mg Potassium Chloride/Sodium Chloride (1/2 Ns With 20 Meq Kcl) 1,000 mls @ 50 mls/ hr IV ASDIRECTED [facility] Last Admin: 05/28/18 22:11 Dose: 50 mls/hr Insulin Human Lispro (Humalog) 15 unit SUBCUT ONETIME ONE Stop: 05/29/18 08:21 Last Admin: 05/29/18 09:17 Dose: 15 units - Exam General: No Acute Distress, Obtunded HEENT: Mucous Membr. Moist/[place] Neck: Supple, Trachea Midline, No Thyromegaly. No: Lymphadenopathy Lungs: Clear to Auscultation, Normal Respiratory Effort Cardiovascular: No Murmurs, Irregular Rhythm, Tachycardia GI/Abdominal Exam: Normal Bowel Sounds, Soft, No Organomegaly, No Distention, No Mass Extremities: Non-Tender, Pedal Edema (1+ pitting bilaterally) Peripheral Pulses: 2+: Radial (L), Radial (R) Skin: Warm, Dry, Intact - Problem List & Annotations (1) Obtundation SNOMED Code(s): 23339166 Code(s): R40.1 - STUPOR Status: Acute Current Visit: Yes (2) Hypoxia SNOMED Code(s): 534555850 Code(s): R09.02 - HYPOXEMIA Status: Acute Current Visit: Yes (3) CHF (congestive heart failure) SNOMED Code(s): 89225870 Code(s): I50.9 - HEART FAILURE, UNSPECIFIED Status: Chronic Current Visit : Yes Qualifiers: Heart failure type: diastolic Heart failure chronicity: acute on chronic Qualified Code(s): I50.33 - Acute on chronic diastolic (congestive) heart failure (4) Hypernatremia SNOMED Code(s): 67017081 Code(s): E87.0 - HYPEROSMOLALITY AND HYPERNATREMIA Status: Acute Priority : Medium Current Visit: Yes (5) Atrial fibrillation SNOMED Code(s): 35602703 Code(s): I48.91 - UNSPECIFIED ATRIAL FIBRILLATION Status: Chronic Current Visit: No Qualifiers: Atrial fibrillation type: persistent Qualified Code(s): I48.1 - Persistent atrial fibrillation (6) Bipolar 1 disorder SNOMED Code(s): 646144449 Code(s): F31.9 - BIPOLAR DISORDER, UNSPECIFIED Status: Chronic Current Visit: No (7) Chronic kidney disease SNOMED Code(s): 973182623 Code(s): N18.9 - CHRONIC KIDNEY DISEASE, UNSPECIFIED Status: Chronic Current Visit: No Qualifiers: Chronic kidney disease stage: stage 3 (moderate) Qualified Code(s): N18.3 - Chronic kidney disease, stage 3 (moderate) (8) Dementia SNOMED Code(s): 72641352 Code(s): F03.90 - UNSPECIFIED DEMENTIA WITHOUT BEHAVIORAL DISTURBANCE Status: Chronic Current Visit: No Qualifiers: Dementia type: unspecified type Dementia behavioral disturbance: without behavioral disturbance Qualified Code(s): F03.90 - Unspecified dementia without behavioral disturbance (9) Diabetes SNOMED Code(s): 89365528 Code(s): E11.9 - TYPE 2 DIABETES MELLITUS WITHOUT COMPLICATIONS Status: Chronic Current Visit: No Qualifiers: Diabetes mellitus type: type 2 Diabetes mellitus remote computer terminal operator insulin use: with jail use Diabetes mellitus complication status: without complication Qualified Code(s): E11.9 - Type 2 diabetes mellitus without complications; Z79.4 - remote computer terminal operator (current) use of insulin (10) Hypertension SNOMED Code(s): 21346484 Code(s): I10 - ESSENTIAL (PRIMARY) HYPERTENSION Status: Chronic Current Visit: No Qualifiers: Hypertension type: essential hypertension Qualified Code(s): I10 - Essential (primary) hypertension (11) Morbid obesity SNOMED Code(s): 467034999 Code(s): E66.01 - MORBID (SEVERE) OBESITY DUE TO EXCESS CALORIES Status: Chronic Current Visit: No (12) Sleep apnea SNOMED Code(s): 77408873 Code(s): G47.30 - SLEEP APNEA, UNSPECIFIED Status: Chronic Current Visit : No Qualifiers: Sleep apnea type: unspecified type Qualified Code(s): G47.30 - Sleep apnea , unspecified - Problem List Review Problem List Initiated/Reviewed/Updated: Yes - My Orders Last 24 Hours: My Active Orders 05/29/18 14:00 BASIC METABOLIC PANEL,BMP [CHEM] Timed 05/30/18 05:11 BASIC METABOLIC PANEL,BMP [CHEM] Routine CBC WITH AUTO DIFF [HEME] Routine PRO B-TYPE NATRIUR PEPT,BNPPRO [CHEM] Routine - Assessment Assessment:: 68 yo female admitted with hypoxia and obtundation. No change in status overnight. - Plan Plan:: #1 Obtundation - Unclear cause for her symptoms. Sodium is high but not any higher than when she was discharged and at her mental status baseline. Glucoses are not high enough to cause this, especially given lack of similar symptoms with similar glucoses in the past. - Some concern for an intracranial process and difficult to assess for focal deficits given patient's mental status. - Will do a head CT today. - I did call and speak with her daughter who is in agreement with the CT head but also does not want aggressive interventions. She plans to come to [place] tomorrow as she is not able to today due to weather conditions and work. She would like her mother to be supported and kept alive until she is able to get here but nothing further than this. #2 Hypoxia #3 CHF - Unclear etiology at this point. - Some concern for CHF exacerbation given the amount of fluids she got during her last hospitalization and the elevation in BNP twice what it was during her last hospitalization. However, her weight is stable and her CXR did not show any evidence of fluid overload. - Also wondering about [employer] cause for this. See above. - Will give a dose of IV lasix today and recheck labs this pm. - Will monitor O2 saturation closely. As above, patient's daughter requests support to keep her alive until she can arrive. This could include BiPap if need be and possibly she would consider temporary ET intubation. I will call her with an update this pm and we will go from there. #4 Hypernatremia - Will hold off on further IV fluids and trial a dose of lasix this am. - Recheck labs this pm. - If worse, will resume fluids. If improved, will consider additional lasix dosing. #5 Atrial Fibrillation #6 Bipolar I #7 CKD #8 Dementia #9 Diabetes #10 Hypertension #11 Morbid Obesity #12 [place] - Continue home basal insulin; hold mealtime insulin. - Patient is not currently able to take PO medications. Will hold off on IV replacements for now as she has frequently done this in the past. Will resume medications as she is able to take PO. Patient will remain on acute status at this point - anticipate admission for another 2-3 days but will depend on clinical course and interventions/decisions on care plan. Patient is on xarelto and will not require other VTE prophylaxis unless she still is unable to take PO tomorrow. Then will start heparin subq. Code status is DNR/DNI apart from considerations for time to allow her daughter to arrive as above - she is DNR for sure per her daughter but may consider intubation temporarily.
[2018-05-29 14:33] LABS: ANION GAP 15.7 mmol/L (10-20)
--- NOTE | 2018-05-29 14:57 | PCM.SN ---
- Free Text/Narrative Note: Labs reviewed. Sodium increased, making CHF a much less likely diagnosis as then the lasix should have helped bring this down. CT head negative. Will start 1/2 NS @ 100 cc/hr and infuse overnight. Other consideration would be seizure ( either status epilepticus or postictal state) but patient has no prior history of seizures. Spoke with patient's daughter to provide an update. Discussed transfer to [place] now vs seeing first how she does with the fluids overnight. She is in agreement with the latter. She will call for updates overnight and through the morning and then further decisions will be made at that time.
[2018-05-29] MEDS: Sodium Chloride 0.45% 1,000 ML IV SCH ×2 (15:52→22:32)
[2018-05-29] MEDS ORDERED: Insulin Glargine,Human Rec. Analog 100 Units/ML 3 ML Pen SUBCUT SCH ×2 (20:00)
[2018-05-30] MEDS: Albuterol 0.083% 2.5 MG/3 ML Neb Soln INH SCH ×4 (07:07→21:09)
[2018-05-30 07:37] LABS: ANION GAP 13.9 mmol/L (10-20)
[2018-05-30] MEDS ORDERED: Enoxaparin 40 MG/0.4 ML Syringe SUBCUT SCH (08:45)
--- NOTE | 2018-05-30 09:37 | PCM.PN ---
- General Info Date of Service: 05/30/18 Subjective Update: 68 yo female hospital day #3 admitted with altered mental status and hypoxia of uncertain etiology. No overnight events. Is on supplemental oxygen via nasal cannula and breathing comfortably. Has been slightly more alert at times. - Review of Systems Systems Review Comment:: Unable to assess as patient does not answer questions. - Patient Data Vitals - Most Recent: Last Vital Signs Temp 36.9 C 05/30/18 06:00 Pulse 95 05/30/18 06:00 Resp 20 05/30/18 06:00 BP 117/66 05/30/18 06:00 Pulse Ox 95 05/30/18 06:00 Weight - Most Recent: 108.409 kg I&O - Last 24 Hours: Intake & Output 05/29/18 05/30/18 05/30/18 22:59 06:59 14:59 Intake Total 1441 Balance 1441 Lab Results Last 24 Hours: Laboratory Results - last 24 hr 05/28/18 05/29/18 05/29/18 Range/Units 21:55 11:06 14:09 WBC (4.0-10.0) x10^3/uL RBC (4.00-5.50) x10^6/uL Hgb (12.0-16.0) g/dL Hct (33.0-47.0) % MCV (78.0-93.0) fL MCH (26.0-32.0) pg MCHC (32.0-36.0) g/dL RDW Coeff of Neema (10.0-15.0) % Plt Count (130-400) x10^3/uL Neut % (Auto) (50.0-80.0) % Lymph % (Auto) (25.0-50.0) % [place] % (Auto) (2.0-11.0) % Eos % (Auto) (0.0-4.0) % Baso % (Auto) (0.2-1.2) % Sodium 163 H* (136-145) mmol/L Potassium 3.7 (3.5-5.1) mmol/L Chloride 121 H (98-107) mmol/L Carbon Dioxide 30 (21-32) mmol/L Anion Gap 15.7 (10-20) mmol/L BUN 49 H (7-18) mg/dL Creatinine 1.5 H (0.55-1.02) mg/dL Est Cr Clr Drug Dosing 30.14 mL/min Estimated GFR (MDRD) 34 Glucose 318 H (74-106) mg/dL POC Glucose 265 H 358 H (74-106) mg/dL Calcium 9.3 (8.5-10.1) mg/dL NT-Pro-B Natriuret Pep (<=125) pg/mL 05/29/18 05/29/18 05/30/18 Range/Units 15:59 20:08 05:46 WBC (4.0-10.0) x10^3/uL RBC (4.00-5.50) x10^6/uL Hgb (12.0-16.0) g/dL Hct (33.0-47.0) % MCV (78.0-93.0) fL MCH (26.0-32.0) pg MCHC (32.0-36.0) g/dL RDW Coeff of Neema (10.0-15.0) % Plt Count (130-400) x10^3/uL Neut % (Auto) (50.0-80.0) % Lymph % (Auto) (25.0-50.0) % [place] % (Auto) (2.0-11.0) % Eos % (Auto) (0.0-4.0) % Baso % (Auto) (0.2-1.2) % Sodium (136-145) mmol/L Potassium (3.5-5.1) mmol/L Chloride (98-107) mmol/L Carbon Dioxide (21-32) mmol/L Anion Gap (10-20) mmol/L BUN (7-18) mg/dL Creatinine (0.55-1.02) mg/dL Est Cr Clr Drug Dosing mL/min Estimated GFR (MDRD) Glucose (74-106) mg/dL POC Glucose 295 H 334 H 377 H (74-106) mg/dL Calcium (8.5-10.1) mg/dL NT-Pro-B Natriuret Pep (<=125) pg/mL 05/30/18 05/30/18 Range/Units 06:57 06:57 WBC 6.9 (4.0-10.0) x10^3/uL RBC 4.08 (4.00-5.50) x10^6/uL Hgb 12.8 D (12.0-16.0) g/dL Hct 43.0 (33.0-47.0) % MCV 105.4 H (78.0-93.0) fL MCH 31.4 (26.0-32.0) pg MCHC 29.8 L (32.0-36.0) g/dL RDW Coeff of Neema 14.2 (10.0-15.0) % Plt Count 155 (130-400) x10^3/uL Neut % (Auto) 79.8 (50.0-80.0) % Lymph % (Auto) 14.1 L (25.0-50.0) % [place] % (Auto) 5.7 (2.0-11.0) % Eos % (Auto) 0.1 (0.0-4.0) % Baso % (Auto) 0.3 (0.2-1.2) % Sodium 160 H (136-145) mmol/L Potassium 3.9 (3.5-5.1) mmol/L Chloride 120 H (98-107) mmol/L Carbon Dioxide 30 (21-32) mmol/L Anion Gap 13.9 (10-20) mmol/L BUN 51 H (7-18) mg/dL Creatinine 1.4 H (0.55-1.02) mg/dL Est Cr Clr Drug Dosing 32.29 mL/min Estimated GFR (MDRD) 37 Glucose 426 H* (74-106) mg/dL POC Glucose (74-106) mg/dL Calcium 8.7 (8.5-10.1) mg/dL NT-Pro-B Natriuret Pep 7270 H (<=125) pg/mL Jose Results Last 24 Hours: Microbiology 05/29/18 04:28 MRSA Surveillance Culture - Final Nares, Unspecified NO MRSA ISOLATED Med Orders - Current: Current Medications Albuterol (Proventil Neb Soln) 2.5 mg INH QIDRT [facility] Last Admin: 05/30/18 07:07 Dose: 2.5 mg Digoxin (Lanoxin) 125 mcg PO DAILY [facility] Last Admin: 05/29/18 14:50 Dose: Not Given Divalproex Sodium (Depakote Sprinkle) 250 mg PO DAILY [facility] Last Admin: 05/29/18 14:50 Dose: Not Given Divalproex Sodium (Depakote Sprinkle) 500 mg PO BEDTIME [facility] Enoxaparin Sodium (Lovenox) 40 mg SUBCUT DAILY [facility] Sodium Chloride (Sodium Chloride 0.45%) 1,000 mls @ 100 mls/hr IV ASDIRECTED [facility] Last Admin: 05/29/18 22:32 Dose: 100 mls/hr Insulin Glargine (Lantus Solostar) 14 units SUBCUT BEDTIME [facility] Last Admin: 05/29/18 20:10 Dose: 14 units Insulin Human Lispro (Humalog) 0 unit SUBCUT TIDMEALS [facility]; Protocol Metoprolol Tartrate (Lopressor) 100 mg PO BID [facility] Last Admin: 05/29/18 14:50 Dose: Not Given Senna/Docusate Sodium (Senna Plus) 1 tab PO DAILY [facility] Last Admin: 05/29/18 14:50 Dose: Not Given Sodium Chloride (Saline Flush) 10 ml FLUSH ASDIRECTED PRN PRN Reason: Keep Vein Open Last Admin: 05/28/18 18:23 Dose: 10 ml Discontinued Medications Furosemide (Lasix) 40 mg IV ONETIME ONE Stop: 05/28/18 18:03 Last Admin: 05/28/18 18:22 Dose: 40 mg Furosemide (Lasix) 40 mg IV ONETIME ONE Stop: 05/29/18 08:59 Last Admin: 05/29/18 09:17 Dose: 40 mg Potassium Chloride/Sodium Chloride (1/2 Ns With 20 Meq Kcl) 1,000 mls @ 50 mls/ hr IV ASDIRECTED [facility] Last Admin: 05/28/18 22:11 Dose: 50 mls/hr Insulin Glargine (Lantus Solostar) 14 units SUBCUT BEDTIME [facility] Insulin Human Lispro (Humalog) 15 unit SUBCUT ONETIME ONE Stop: 05/29/18 08:21 Last Admin: 05/29/18 09:17 Dose: 15 units Rivaroxaban (Xarelto) 20 mg PO DAILY [facility] Last Admin: 05/29/18 14:49 Dose: Not Given - Exam General: Other (sleepy but does alert to sternal rub today and keeps her eyes open) HEENT: Mucous Membr. Moist/[place] Neck: Supple, No Thyromegaly. No: Lymphadenopathy Lungs: Clear to Auscultation, Normal Respiratory Effort Cardiovascular: No Murmurs, Irregular Rhythm, Tachycardia GI/Abdominal Exam: Normal Bowel Sounds, Soft, Non-Tender, No Organomegaly, No Distention, No Mass Extremities: Normal Inspection, Non-Tender, Pedal Edema (trace bilateral) Peripheral Pulses: 2+: Radial (L), Radial (R) Skin: Warm, Dry, Intact - Problem List & Annotations (1) Obtundation SNOMED Code(s): 97035949 Code(s): R40.1 - STUPOR Status: Acute Current Visit: Yes (2) Hypoxia SNOMED Code(s): 334072631 Code(s): R09.02 - HYPOXEMIA Status: Acute Current Visit: Yes (3) CHF (congestive heart failure) SNOMED Code(s): 76302259 Code(s): I50.9 - HEART FAILURE, UNSPECIFIED Status: Chronic Current Visit : Yes Qualifiers: Heart failure type: diastolic Heart failure chronicity: acute on chronic Qualified Code(s): I50.33 - Acute on chronic diastolic (congestive) heart failure (4) Hypernatremia SNOMED Code(s): 04840038 Code(s): E87.0 - HYPEROSMOLALITY AND HYPERNATREMIA Status: Acute Priority : Medium Current Visit: Yes (5) Atrial fibrillation SNOMED Code(s): 91912485 Code(s): I48.91 - UNSPECIFIED ATRIAL FIBRILLATION Status: Chronic Current Visit: No Qualifiers: Atrial fibrillation type: persistent Qualified Code(s): I48.1 - Persistent atrial fibrillation (6) Bipolar 1 disorder SNOMED Code(s): 875612068 Code(s): F31.9 - BIPOLAR DISORDER, UNSPECIFIED Status: Chronic Current Visit: No (7) Chronic kidney disease SNOMED Code(s): 531677632 Code(s): N18.9 - CHRONIC KIDNEY DISEASE, UNSPECIFIED Status: Chronic Current Visit: No Qualifiers: Chronic kidney disease stage: stage 3 (moderate) Qualified Code(s): N18.3 - Chronic kidney disease, stage 3 (moderate) (8) Dementia SNOMED Code(s): 41508626 Code(s): F03.90 - UNSPECIFIED DEMENTIA WITHOUT BEHAVIORAL DISTURBANCE Status: Chronic Current Visit: No Qualifiers: Dementia type: unspecified type Dementia behavioral disturbance: without behavioral disturbance Qualified Code(s): F03.90 - Unspecified dementia without behavioral disturbance (9) Diabetes SNOMED Code(s): 12431704 Code(s): E11.9 - TYPE 2 DIABETES MELLITUS WITHOUT COMPLICATIONS Status: Chronic Current Visit: No Qualifiers: Diabetes mellitus type: type 2 Diabetes mellitus retail reset merchandiser insulin use: with retail reset merchandiser use Diabetes mellitus complication status: without complication Qualified Code(s): E11.9 - Type 2 diabetes mellitus without complications; Z79.4 - intermediate (current) use of insulin (10) Hypertension SNOMED Code(s): 83770333 Code(s): I10 - ESSENTIAL (PRIMARY) HYPERTENSION Status: Chronic Current Visit: No Qualifiers: Hypertension type: essential hypertension Qualified Code(s): I10 - Essential (primary) hypertension (11) Morbid obesity SNOMED Code(s): 850545965 Code(s): E66.01 - MORBID (SEVERE) OBESITY DUE TO EXCESS CALORIES Status: Chronic Current Visit: No (12) Sleep apnea SNOMED Code(s): 21460419 Code(s): G47.30 - SLEEP APNEA, UNSPECIFIED Status: Chronic Current Visit : No Qualifiers: Sleep apnea type: unspecified type Qualified Code(s): G47.30 - Sleep apnea , unspecified - Problem List Review Problem List Initiated/Reviewed/Updated: Yes - My Orders Last 24 Hours: My Active Orders 05/29/18 15:00 Sodium Chloride 0.45% 1,000 ml IV ASDIRECTED 05/29/18 20:00 Insulin Glarg,Human.Rec.Analog [LantUS Solostar] 14 units SUBCUT BEDTIME 05/30/18 08:35 Insulin Lispro [HumaLOG] See Protocol SUBCUT TIDMEALS 05/30/18 08:45 Enoxaparin [Lovenox] 40 mg SUBCUT DAILY 05/31/18 07:00 CBC W/O DIFF,HEMOGRAM [HEME] Q3D 06/03/18 07:00 CBC W/O DIFF,HEMOGRAM [HEME] Q3D 06/06/18 07:00 CBC W/O DIFF,HEMOGRAM [HEME] Q3D 06/09/18 07:00 CBC W/O DIFF,HEMOGRAM [HEME] Q3D 06/12/18 07:00 CBC W/O DIFF,HEMOGRAM [HEME] Q3D 06/15/18 07:00 CBC W/O DIFF,HEMOGRAM [HEME] Q3D 06/18/18 07:00 CBC W/O DIFF,HEMOGRAM [HEME] Q3D - Assessment Assessment:: 68 yo female admitted with hypoxia and obtundation. Slightly less obtunded today ; O2 saturations stable on nasal cannula. - Plan Plan:: #1 Obtundation - Unclear cause for her symptoms. - Labs (sodium and glucose) significantly abnormal but not any more than patient has had previously without these symptoms. - No evidence of infection. CT head negative yesterday but still possible for some ASSIGNMENT MANAGER process not visualized without MRI. Consideration for seizure activity but patient does not appear to be in status today, still would question a postictal period. - As patient is improving slowly, will hold off on any further evaluation or management for now and continue close monitoring. - Daughter has been updated by nursing overnight. #2 Hypoxia #3 CHF - Unclear etiology at this point. - Some concern for CHF exacerbation but patient's labs worsened with IV lasix. Therefore, this is much less likely to be the cause. - Patient is getting and tolerating IV fluids without any issues. Her lasix is held. - Will monitor closely for evidence of fluid overload. - Otherwise, she is stable on oxygen via nasal cannula. #4 Hypernatremia - Sodium up yesterday afternoon, down slightly again this am. - Will continue 1/2 NS @ 100 cc/hr. - Recheck labs in the am. #5 Atrial Fibrillation #6 Bipolar I #7 CKD #8 Dementia #9 Diabetes #10 Hypertension #11 Morbid Obesity #12 [place] - Continue home basal insulin; will start low dose sliding scale today as her glucoses have been high even though she is not eating. - Patient is not currently able to take PO medications. - Will do lovenox to replace her xarelto. - Rates have been in the 100-130 range. Doubtful she would tolerate IV beta- blockers as her BP was low yesterday pm anyway; will hold off on IV replacements for now and continue to monitor closely. - Will resume medications when she is able to take PO. Patient will remain on acute status at this point - anticipate admission for another 2-3 days but will depend on clinical course and interventions/decisions on care plan. Lovenox for VTE prophylaxis since she is still not able to take PO today and CrCl is >30. Code status is DNR/DNI apart from considerations for time to allow her daughter to arrive if she is actively passing away - she is DNR for sure per her daughter but may consider intubation temporarily.
[2018-05-30] MEDS: Insulin Lispro 100 Unit/ML 3 ML KwikPen SUBCUT SCH ×2 (10:35→15:31)
[2018-05-30] MEDS: Sodium Chloride 0.45% 1,000 ML IV SCH (11:45)
--- NOTE | 2018-05-30 17:19 | PCM.SN ---
- Free Text/Narrative Note: Patient's family came this pm to visit. Discussed current status and guarded prognosis. Reviewed possibility to improve with further IV fluids. However, this is also a temporary fix as patient tends to present similarly with her hospitalizations. Discussed option to continue with IV fluids to see if she will improve vs to withdraw all cares and keep her comfortable. Given her poor underlying functional status, family elects to go with the 2nd option. care home has paperwork on file that patient's daughter, Tabatha, is healthcare POA. Tabatha is present at patient's bedside and opts to withdraw all cares and keep patient comfortable until she passes. Offered transfer back to the [facility] today; however, patient's family will only be here for a few more hours and prefers to keep her here today if possible. Patient will be dismissed back to the care center tomorrow unless she passes away overnight.
[2018-05-30] MEDS ORDERED: Atropine 1% Ophth Soln 5 ML BOTTLE SL PRN (19:08)
[2018-05-31] MEDS: Albuterol 0.083% 2.5 MG/3 ML Neb Soln INH SCH (06:03)
--- NOTE | 2018-05-31 08:18 | PCM.DCSUM1 ---
Discharge Summary - Hospital Course Brief History: Ms. Rowe is a 68 yo female who was admitted with hypernatremia, hypoxia, and altered mental status. - Discharge Data Discharge Date: 05/31/18 Discharge Disposition: DC/Tfer to SNF 03 Condition: Good - Discharge Diagnosis/Problem(s) (1) Obtundation SNOMED Code(s): 76629086 ICD Code: R40.1 - STUPOR Status: Acute Current Visit: Yes (2) Hypoxia SNOMED Code(s): 611853503 ICD Code: R09.02 - HYPOXEMIA Status: Acute Current Visit: Yes (3) CHF (congestive heart failure) SNOMED Code(s): 15794462 ICD Code: I50.9 - HEART FAILURE, UNSPECIFIED Status: Chronic Current Visit: Yes Qualifiers: Heart failure type: diastolic Heart failure chronicity: acute on chronic Qualified Code(s): I50.33 - Acute on chronic diastolic (congestive) heart failure (4) Hypernatremia SNOMED Code(s): 46593787 ICD Code: E87.0 - HYPEROSMOLALITY AND HYPERNATREMIA Status: Acute Priority: Medium Current Visit: Yes (5) Atrial fibrillation SNOMED Code(s): 91404076 ICD Code: I48.91 - UNSPECIFIED ATRIAL FIBRILLATION Status: Chronic Current Visit: No Qualifiers: Atrial fibrillation type: persistent Qualified Code(s): I48.1 - Persistent atrial fibrillation (6) Bipolar 1 disorder SNOMED Code(s): 039550128 ICD Code: F31.9 - BIPOLAR DISORDER, UNSPECIFIED Status: Chronic Current Visit: No (7) Chronic kidney disease SNOMED Code(s): 755639954 ICD Code: N18.9 - CHRONIC KIDNEY DISEASE, UNSPECIFIED Status: Chronic Current Visit: No Qualifiers: Chronic kidney disease stage: stage 3 (moderate) Qualified Code(s): N18.3 - Chronic kidney disease, stage 3 (moderate) (8) Dementia SNOMED Code(s): 17075113 ICD Code: F03.90 - UNSPECIFIED DEMENTIA WITHOUT BEHAVIORAL DISTURBANCE Status: Chronic Current Visit: No Qualifiers: Dementia type: unspecified type Dementia behavioral disturbance: without behavioral disturbance Qualified Code(s): F03.90 - Unspecified dementia without behavioral disturbance (9) Diabetes SNOMED Code(s): 46992874 ICD Code: E11.9 - TYPE 2 DIABETES MELLITUS WITHOUT COMPLICATIONS Status: Chronic Current Visit: No Qualifiers: Diabetes mellitus type: type 2 Diabetes mellitus prison insulin use: with joint terminal attack controller use Diabetes mellitus complication status: without complication Qualified Code(s): E11.9 - Type 2 diabetes mellitus without complications; Z79.4 - penitentiary (current) use of insulin (10) Hypertension SNOMED Code(s): 65777666 ICD Code: I10 - ESSENTIAL (PRIMARY) HYPERTENSION Status: Chronic Current Visit: No Qualifiers: Hypertension type: essential hypertension Qualified Code(s): I10 - Essential (primary) hypertension (11) Morbid obesity SNOMED Code(s): 783575544 ICD Code: E66.01 - MORBID (SEVERE) OBESITY DUE TO EXCESS CALORIES Status: Chronic Current Visit: No (12) Sleep apnea SNOMED Code(s): 20088564 ICD Code: G47.30 - SLEEP APNEA, UNSPECIFIED Status: Chronic Current Visit : No Qualifiers: Sleep apnea type: unspecified type Qualified Code(s): G47.30 - Sleep apnea , unspecified - Patient Summary/Data Operative Procedure(s) Performed: none Complications: none Consults: none Labs Pending at D/C: none Recommended Follow-up Testing/Procedures: none Planned Operative Procedure(s) after DC: none Hospital Course: Patient was admitted and given IV fluids. Her mentation did not really improve over the course of that time. Her family came to visit yesterday and her status and prognosis were discussed. After this discussion, the decision was made to pursue comfort cares. All medications, lab and vital sign monitoring, and telemetry were discontinued. She has not seemed to be in any distress since then and has not required anything for symptoms apart from minimal dosing of atropine for excessive secretions. She will be dismissed back to the care center today to remain on comfort cares. - Patient Instructions Diet: NPO - Discharge Plan *PRESCRIPTION DRUG MONITORING PROGRAM REVIEWED*: No *COPY OF PRESCRIPTION DRUG MONITORING REPORT IN PATIENT CJ: No Home Medications: Home Meds Albuterol [Proventil] 2.5 mg INH QIDRT 04/08/18 [History] Forms: ED Department Discharge Referrals: Delores Hill MD [Primary Care Provider] - - Discharge Summary/Plan Comment DC Time >30 min.: No - General Info Date of Service: 05/31/18 Subjective Update: Patient is resting comfortably in bed and does not appear in any distress. - Review of Systems Systems Review Comment: Patient does not answer questions. - Patient Data Vitals - Most Recent: Last Vital Signs Temp 37.2 C 05/31/18 05:19 Pulse 110 H 05/31/18 05:19 Resp 24 H 05/31/18 05:19 BP 132/67 05/31/18 05:19 Pulse Ox 87 L 05/31/18 05:19 Weight - Most Recent: 109.588 kg Lab Results - Last 24 hrs: Laboratory Results - last 24 hr 05/30/18 05/31/18 Range/Units 11:11 05:51 POC Glucose 387 H 327 H (74-106) mg/dL NIKKI Results - Last 24 hrs: Microbiology 05/29/18 04:28 MRSA Surveillance Culture - Final Nares, Unspecified NO MRSA ISOLATED Med Orders - Current: Current Medications Albuterol (Proventil Neb Soln) 2.5 mg INH QIDRT [facility] Last Admin: 05/31/18 06:03 Dose: 2.5 mg Atropine Sulfate (Atropine 1% Ophth Soln) 0.1 ml SL Q2H PRN PRN Reason: secretions Sodium Chloride (Saline Flush) 10 ml FLUSH ASDIRECTED PRN PRN Reason: Keep Vein Open Last Admin: 05/28/18 18:23 Dose: 10 ml Discontinued Medications Digoxin (Lanoxin) 125 mcg PO DAILY [facility] Last Admin: 05/29/18 14:50 Dose: Not Given Divalproex Sodium (Depakote Sprinkle) 250 mg PO DAILY [facility] Last Admin: 05/29/18 14:50 Dose: Not Given Divalproex Sodium (Depakote Sprinkle) 500 mg PO BEDTIME [facility] Enoxaparin Sodium (Lovenox) 40 mg SUBCUT DAILY [facility] Last Admin: 05/30/18 10:34 Dose: 40 mg Furosemide (Lasix) 40 mg IV ONETIME ONE Stop: 05/28/18 18:03 Last Admin: 05/28/18 18:22 Dose: 40 mg Furosemide (Lasix) 40 mg IV ONETIME ONE Stop: 05/29/18 08:59 Last Admin: 05/29/18 09:17 Dose: 40 mg Potassium Chloride/Sodium Chloride (1/2 Ns With 20 Meq Kcl) 1,000 mls @ 50 mls/ hr IV ASDIRECTED [facility] Last Admin: 05/28/18 22:11 Dose: 50 mls/hr Sodium Chloride (Sodium Chloride 0.45%) 1,000 mls @ 150 mls/hr IV ASDIRECTED [facility] Last Admin: 05/30/18 11:45 Dose: 150 mls/hr Insulin Glargine (Lantus Solostar) 14 units SUBCUT BEDTIME [facility] Insulin Glargine (Lantus Solostar) 14 units SUBCUT BEDTIME [facility] Last Admin: 05/29/18 20:10 Dose: 14 units Insulin Human Lispro (Humalog) 15 unit SUBCUT ONETIME ONE Stop: 05/29/18 08:21 Last Admin: 05/29/18 09:17 Dose: 15 units Insulin Human Lispro (Humalog) 0 unit SUBCUT TIDMEALS [facility]; Protocol Last Admin: 05/30/18 15:31 Dose: Not Given Metoprolol Tartrate (Lopressor) 100 mg PO BID [facility] Last Admin: 05/29/18 14:50 Dose: Not Given Rivaroxaban (Xarelto) 20 mg PO DAILY [facility] Last Admin: 05/29/18 14:49 Dose: Not Given Senna/Docusate Sodium (Senna Plus) 1 tab PO DAILY [facility] Last Admin: 05/29/18 14:50 Dose: Not Given - Exam General: Reports: No Acute Distress HEENT: Reports: Mucous Membr. Moist/[place] Neck: Reports: Supple, Trachea Midline, No Thyromegaly. Denies: Lymphadenopathy Lungs: Reports: Clear to Auscultation, Normal Respiratory Effort Cardiovascular: Reports: Regular Rate, No Murmurs, Irregular Rhythm GI/Abdominal Exam: Normal Bowel Sounds, Soft, Non-Tender, No Organomegaly, No Distention, No Mass Extremities: Non-Tender, No Pedal Edema, Normal Capillary Refill Skin: Reports: Warm, Dry, Intact
== END 2018-05-31 10:05 | DRG 291 ==
LOC: VM.ED 17:49 → VM.MS 20:18
PROVIDERS: ADMIT Family Medicine; ATTEND Family Medicine
DX: I13.0 Hypertensive heart and chronic kidney disease with heart failure and stage 1 through stage 4 chronic kidney disease, or unspecified chronic kidney disease (principal); I50.33 Acute on chronic diastolic (congestive) heart failure; E87.0 Hyperosmolality and hypernatremia; I48.1 Persistent atrial fibrillation; Z68.41 Body mass index [BMI] 40.0-44.9, adult; Z66 Do not resuscitate; R09.02 Hypoxemia; N18.3 Chronic kidney disease, stage 3 (moderate); E11.22 Type 2 diabetes mellitus with diabetic chronic kidney disease; F31.9 Bipolar disorder, unspecified; F03.90 Unspecified dementia, unspecified severity, without behavioral disturbance, psychotic disturbance, mood disturbance, and anxiety; E66.01 Morbid (severe) obesity due to excess calories; I25.10 Atherosclerotic heart disease of native coronary artery without angina pectoris; E78.00 Pure hypercholesterolemia, unspecified; K21.9 Gastro-esophageal reflux disease without esophagitis; M19.90 Unspecified osteoarthritis, unspecified site; F41.9 Anxiety disorder, unspecified; D50.9 Iron deficiency anemia, unspecified; G47.33 Obstructive sleep apnea (adult) (pediatric); Z79.4 Long term (current) use of insulin; Z79.899 Other long term (current) drug therapy; Z79.01 Long term (current) use of anticoagulants; Z86.73 Personal history of transient ischemic attack (TIA), and cerebral infarction without residual deficits
CPT/HCPCS: 36415; 70450; 71045; 80048; 80053; 80162; 81001; 82550; 82962; 83880; 84443; 84484; 85025; 93005; 94640; 96374; 99284-GF; 99285; J1650; J1815; J1815-GY; J1940; J3480; J7030; J7613-GY